=== PATIENT | female | born 1995 | race Caucasian/White ===

== ENCOUNTER → 2017-07-12 | Outpatient (CLI) | payer OTHER ==
--- NOTE | 2017-07-12 10:38 | XR ---
EXAMINATION TYPE: XR humerus LT DATE OF EXAM: 07/12/2017 CLINICAL HISTORY: Displaced control implant. TECHNIQUE: Two views of the left humerus are obtained. COMPARISON: None. FINDINGS: There is no acute fracture or dislocation seen in the left humerus. The left shoulder and elbow joints appear within normal limits. Overlying bra is partially imaged. There is linear 4.7 cm density corresponding to control implant in the soft tissue anterior radial aspect mid humeral level. IMPRESSION: As above.
== END | disposition home or self-care (01) ==
LOC: RADXRMAIN 09:25
PROVIDERS: ATTEND Midwife
DX: T85.628A Displacement of other specified internal prosthetic devices, implants and grafts, initial encounter (principal)

== ENCOUNTER 2018-06-15 04:13 | Emergency (ER) | payer BC ==
[2018-06-15] MEDS ORDERED: SODIUM CHLORIDE 0.9% 500 ML 500 ML IV STA (04:23)
--- NOTE | 2018-06-15 04:25 | ED ---
Abdominal Pain HPI - General Chief Complaint: Abdominal Pain Stated Complaint: ABD PAIN Time Seen by Provider: 06/15/18 04:21 Source: patient Mode of arrival: ambulatory Limitations: no limitations - History of Present Illness Initial Comments: Nano is a pleasant 22-year-old 1011 female who presents to the emergency department today for evaluation of nausea, vomiting and abdominal discomfort. Patient reports that she had a positive test in March however she subsequently developed vaginal bleeding she had evaluation by OB and was noted to have a miscarriage with Creason her hormone level from 15,003. Patient reports that she remains sexually active throughout the month of April she never had a menstrual cycle in April and in May has had 2 positive tests. Patient reports that for the past 5 days she has been very nauseated, had multiple episodes of nonbloody nonbilious emesis and loss of appetite. She reports that she's had intermittent pain in the left lower quadrant not associated with bowel movements or urination. Pain has been intermittent and without exacerbating or relieving factors. Patient reports that this morning she continued to feel nauseated and very unwell she is concerned she was becoming dehydrated so she decided come to the ER for evaluation. - Related Data Previous Rx's Medication Instructions Recorded Ondansetron [Zofran ODT] 4 mg PO Q8HR #12 tab 06/15/18 Allergies Allergy/AdvReac Type Severity Reaction Status Date / Time No Known Allergies Allergy Verified 06/15/18 07:03 Review of Systems ROS Statement: Those systems with pertinent positive or pertinent negative responses have been documented in the HPI. ROS Other: All systems not noted in ROS Statement are negative. Past Medical History Past Medical History: No Reported History Additional Past Medical History / Comment(s): migraines History of Any Multi-Drug Resistant Organisms: None Reported Past Surgical History: No Surgical Hx Reported Past Psychological History: ADD/ADHD, Bipolar, Depression Smoking Status: Former smoker Past Alcohol Use History: None Reported Past Drug Use History: None Reported General Exam - General Exam Comments Initial Comments: Physical Exam GENERAL: Dehydrated appearance In no acute distress HENT: Normocephalic, Atraumatic. EYES: PERRL, EOMI PULMONARY: Unlabored respirations CARDIOVASCULAR: There is a regular rate and rhythm without any murmurs gallops or rubs. ABDOMEN: Soft and nontender with normal bowel sounds. Mild tenderness to deep palpation in the suprapubic and left lower quadrant SKIN: Skin is clear with no lesions or rashes and otherwise unremarkable. : Deferred NEUROLOGIC: Patient is alert and oriented x3. Moving all extremities spontaneously MUSCULOSKELETAL: Normal extremities with adequate strength and full range of motion. No lower extremity swelling or edema. No calf tenderness. PSYCHIATRIC: Normal psychiatric evaluation. Limitations: no limitations Limitations: no limitations Course Vital Signs 06/15/18 06/15/18 06/15/18 04:15 05:20 07:05 Temperature 98.0 F Pulse Rate 71 58 L 60 Respiratory 18 16 16 Rate Blood Pressure 124/77 121/84 122/85 O2 Sat by Pulse 100 99 100 Oximetry Medical Decision Making - Medical Decision Making The patient was seen and evaluated, history is obtained from the patient Patient is a pleasant 22-year-old female with 2 positive tests at home with persistent nausea, vomiting concern for dehydration and intermittent left lower quadrant abdominal pain Patient was seen and evaluated patient does appear to be dehydrated labs and imaging were ordered including hCG Bedside ultrasound reveals no free fluid in the abdomen, no free fluid in Morison's pouch or in the pelvis Bedside ultrasound of the uterus reveals a viable intrauterine with a heart rate in the >160s There are no obvious abnormalities of the bilateral ovaries on transabdominal bedside ultrasound however this is a suboptimal view is suboptimal machine Considering the patient is hemodynamically stable, confirmed intrauterine with no free fluid in the abdomen I do feel she is stable to wait 90 minutes for ultrasound at 7 AM Discussed with the patient that Zofran is category C with some concern that there may be increased risk of cardiovascular disease and or cleft palate. Patient is agreeable to taking a single dose that she does have persistent nausea. Additional IV fluids and D5 were ordered for fluid rehydration and treatment of starvation ketosis Labs no significant abnormalities BHCG >100,000 Transvaginal US reveals viable intrauterine at 8w1d Patient was updated Patient care was discussed with Dr. Brown - is SUNNY with zofran PRN for nausea , patient to follow up in office as scheduled on Monday06/19/18 All questions pertaining to care answered, return parameters discussed, patient discharged home in stable condition - Lab Data Result diagrams: 06/15/18 04:27 06/15/18 04:27 Lab Results 06/15/18 06/15/18 06/15/18 Range/Units 04:27 04:27 05:16 WBC 7.0 (3.8-10.6) k/uL RBC 4.11 (3.80-5.40) m/uL Hgb 12.8 (11.4-16.0) gm/dL Hct 38.8 (34.0-46.0) % MCV 94.5 (80.0-100.0) fL MCH 31.2 (25.0-35.0) pg MCHC 33.1 (31.0-37.0) g/dL RDW 13.0 (11.5-15.5) % Plt Count 261 (150-450) k/uL Neutrophils % 57 % Lymphocytes % 30 % Monocytes % 7 % Eosinophils % 3 % Basophils % 0 % Neutrophils # 4.0 (1.3-7.7) k/uL Lymphocytes # 2.1 (1.0-4.8) k/uL Monocytes # 0.5 (0-1.0) k/uL Eosinophils # 0.2 (0-0.7) k/uL Basophils # 0.0 (0-0.2) k/uL Sodium 138 (137-145) mmol/L Potassium 3.9 (3.5-5.1) mmol/L Chloride 104 (98-107) mmol/L Carbon Dioxide 23 (22-30) mmol/L Anion Gap 11 mmol/L BUN 5 L (7-17) mg/dL Creatinine 0.49 L (0.52-1.04) mg/dL Est GFR (CKD-EPI)AfAm >90 (>60 ml/min/1.73 sqM) Est GFR (CKD-EPI)NonAf >90 (>60 ml/min/1.73 sqM) Glucose 96 (74-99) mg/dL Calcium 9.6 (8.4-10.2) mg/dL Total Bilirubin 0.5 (0.2-1.3) mg/dL AST 17 (14-36) U/L ALT 28 (9-52) U/L Alkaline Phosphatase 47 (38-126) U/L Total Protein 7.3 (6.3-8.2) g/dL Albumin 4.2 (3.5-5.0) g/dL Lipase 85 (23-300) U/L HCG, Quant 056048.0 mIU/mL Urine Color Yellow Urine Appearance Cloudy H (Clear) Urine pH 8.0 (5.0-8.0) Ur Specific [place] 1.013 (1.001-1.035) Urine Protein Trace H (Negative) Urine Glucose (UA) Negative (Negative) Urine Ketones 1+ H (Negative) Urine Blood Negative (Negative) Urine Nitrite Negative (Negative) Urine Bilirubin Negative (Negative) Urine Urobilinogen <2.0 (<2.0) mg/dL Ur Leukocyte Esterase Small H (Negative) Urine WBC 3 (0-5) /hpf Ur Squamous Epith Cells 35 H (0-4) /hpf Amorphous Sediment Occasional H (None) /hpf Urine Mucus Few H (None) /hpf Disposition Clinical Impression: Nausea and vomiting during Disposition: HOME SELF-CARE Condition: Stable Prescriptions: Ondansetron [Zofran ODT] 4 mg PO Q8HR #12 tab Is patient prescribed a controlled substance at d/c from ED?: No Referrals: Shannon Andrade MD [Primary Care Provider] - 1-2 days Tracey Ness MD [STAFF PHYSICIAN] - 1-2 days
[2018-06-15 04:44] LABS: Basophils % (A) 0 %; Eosinophils # (A) 0.2 k/uL (0-0.7); Eosinophils % (A) 3 %; HCT 38.8 % (34.0-46.0); HGB 12.8 gm/dL (11.4-16.0); Lymphocytes # (A) 2.1 k/uL (1.0-4.8); Lymphocytes % (A) 30 %; MCH 31.2 pg (25.0-35.0); MCHC 33.1 g/dL (31.0-37.0); MCV 94.5 fL (80.0-100.0); Mean Platelet Volume 6.2; Monocytes # (A) 0.5 k/uL (0-1.0); Monocytes % (A) 7 %; Neutrophils % (A) 57 %; Platelet Count 261 k/uL (150-450); RBC 4.11 m/uL (3.80-5.40)
[2018-06-15 05:09] LABS: ALT 28 U/L (9-52); AST 17 U/L (14-36); Albumin 4.2 g/dL (3.5-5.0); Alkaline Phosphatase 47 U/L (38-126); Anion Gap 11 mmol/L; Blood Urea Nitrogen 5 mg/dL (7-17); Calcium 9.6 mg/dL (8.4-10.2); Carbon Dioxide 23 mmol/L (22-30); Chloride 104 mmol/L (98-107); Glucose 96 mg/dL (74-99); Lipase 85 U/L (23-300); Potassium 3.9 mmol/L (3.5-5.1); Sodium 138 mmol/L (137-145); Total Bilirubin 0.5 mg/dL (0.2-1.3); Total Protein 7.3 g/dL (6.3-8.2)
[2018-06-15] MEDS ORDERED: ONDANSETRON 4 MG/2 ML VIAL IVP STA (05:10)
[2018-06-15] MEDS ORDERED: SODIUM CHLORIDE 0.9% 1,000 ML IV ONE (05:10)
[2018-06-15] MEDS ORDERED: DEXTROSE 5%-0.9% NACL 1,000 ML IV SCH (05:30)
[2018-06-15 06:11] LABS: Amorphous Sediment,Urine Occasional /hpf; Appearance,Urine Cloudy (Clear); Bilirubin,Urine Negative (Negative); Blood,Urine Negative (Negative); Color,Urine Yellow; Glucose,Urine (UA) Negative (Negative); Ketones,Urine 1+ (Negative); Leukocyte Esterase,Urine Small (Negative); Mucus,Urine Few /hpf; Nitrite,Urine Negative (Negative); Protein,Urine Trace (Negative); Specific Gravity,Urine 1.013 (1.001-1.035); Squamous Epithelial Cell,Urine 35 /hpf (0-4); Urobilinogen,Urine <2.0 mg/dL (<2.0)
--- NOTE | 2018-06-15 07:53 | US ---
EXAMINATION TYPE: Transabdominal DATE OF EXAM: 08/22/17 COMPARISON: NONE CLINICAL HISTORY: LLQ abd pain. Pt states LLQ pain, unsure of dates EXAM PERFORMED: Transabdominal (TA) EXAM MEASUREMENTS: GESTATIONAL AGE / DATING Physician Established: Not yet established Dates by LMP: Unknown, pt states having miscarriage in March and has not had a period since Dates by First Scan: No prior Dates by Current Scan for: (8 weeks/1 days) EDC: 01/24/2019 MATERNAL ANATOMY Uterus: 13.7 x 4.1 x 8.1 cm Right Ovary: 3.2 x 2.6 x 2.0 cm Left Ovary: 4.1 x 3.1 x 2.5 cm Post CDS / Adnexa: wnl Presence of free fluid: No Presence of corpus luteal cyst: Left Ovary= 2.0 x 1.8 x 2.0 cm Presence of subchorionic bleed: Lower uterine segment= 1.5 x 0.7 x 2.6 cm GESTATION / SURVEY CRL: 1.6 cm (8 weeks/1 days) MSD: wnl Yolk Sac (normal less than 6mm): 4mm Heart Rate: 170 bpm Rhythm: Normal IUP: Viable IUP Single, viable IUP/ Sub-chorionic bleed USMAN, otherwise no other abnormality visualized at this time Urinary bladder is sonolucent. Posterior wall is normal. IMPRESSION: 1. Single intrauterine gestation estimated 8 weeks 1 days gestation based on crown-rump length. Cardi ac activity measures 170 bpm. 2. Subchorionic hemorrhage
[2018-06-15 08:39] VITALS: BP 126/54; PULSE 66; RESP 18; TEMP 97.9
== END 2018-06-15 08:40 | disposition home or self-care (01) ==
LOC: EC 04:13
DX: O21.9 Vomiting of pregnancy, unspecified (principal); O99.89 Other specified diseases and conditions complicating pregnancy, childbirth and the puerperium; R10.32 Left lower quadrant pain; O9A.211 Injury, poisoning and certain other consequences of external causes complicating pregnancy, first trimester; T73.0XXA Starvation, initial encounter; Z87.891 Personal history of nicotine dependence; Z3A.08 8 weeks gestation of pregnancy
CPT/HCPCS: 36415; 80053; 83690; 85025; 81001; 84702; 76801; 99284; 96374; 96361 ×3; J2405

== ENCOUNTER 2018-07-18 05:43 | Emergency (ER) | payer BC ==
[2018-07-18 05:56] VITALS: RESP 16
[2018-07-18] MEDS ORDERED: SODIUM CHLORIDE 0.9% 2,000 ML IV STA (06:04)
[2018-07-18] MEDS ORDERED: ONDANSETRON 4 MG/2 ML VIAL IVP STA (06:04)
--- NOTE | 2018-07-18 06:05 | ED ---
General Adult HPI - General Chief complaint: Nausea/Vomiting/Diarrhea Stated complaint: Nausea, vomiting, pgt Time Seen by Provider: 07/18/18 06:04 Source: patient, EMS Mode of arrival: ambulatory Limitations: no limitations - History of Present Illness Initial comments: This is a female currently 12 weeks gestation who presents to the emergency department today for evaluation of nausea and vomiting. Patient reports she's had nausea vomiting throughout this first trimester but it's been bad for the past week. She reports she hasn't been able to tolerate any by mouth intake for 3 days. She states that yesterday she saw her primary care physician who advised her to the ER for IV fluid rehydration however she didn't at that time instead she went home, she reports she woke this morning is feeling very lightheaded and dehydrated which prompted her come to the ER for further evaluation. - Related Data Home Medications Medication Instructions Recorded Confirmed [id number]-[id number]-[id number] Acid 1 cap PO HS 07/18/18 07/18/18 [-U Capsule (formulary)] Previous Rx's Medication Instructions Recorded Ondansetron [Zofran ODT] 4 mg PO Q8HR #12 tab 06/15/18 Allergies Allergy/AdvReac Type Severity Reaction Status Date / Time No Known Allergies Allergy Verified 07/18/18 07:20 Review of Systems ROS Statement: Those systems with pertinent positive or pertinent negative responses have been documented in the HPI. ROS Other: All systems not noted in ROS Statement are negative. Past Medical History Past Medical History: No Reported History Additional Past Medical History / Comment(s): migraines History of Any Multi-Drug Resistant Organisms: None Reported Past Surgical History: No Surgical Hx Reported Past Psychological History: ADD/ADHD, Bipolar, Depression Smoking Status: Former smoker Past Alcohol Use History: None Reported Past Drug Use History: None Reported General Exam - General Exam Comments Initial Comments: Physical Exam GENERAL: Patient is well-developed and well-nourished. Patient is nontoxic and well- hydrated and is in no distress. HENT: Normocephalic, Atraumatic. EYES: PERRL, EOMI PULMONARY: Unlabored respirations. No audible rales rhonchi or wheezing was noted. CARDIOVASCULAR: There is a regular rate and rhythm without any murmurs gallops or rubs. ABDOMEN: Soft and nontender with normal bowel sounds. Bedside ultrasound reveals an active fetus with a heart rate in the 150s SKIN: Skin is clear with no lesions or rashes and otherwise unremarkable. : Deferred NEUROLOGIC: Patient is alert and oriented x3. Moving all extremities spontaneously MUSCULOSKELETAL: Normal extremities with adequate strength and full range of motion. No lower extremity swelling or edema. No calf tenderness. PSYCHIATRIC: Normal psychiatric evaluation. Limitations: no limitations Limitations: no limitations Course Vital Signs 07/18/18 05:53 Temperature 98.2 F Pulse Rate 73 Respiratory 16 Rate Blood Pressure 113/75 O2 Sat by Pulse 100 Oximetry Medical Decision Making - Medical Decision Making Patient was seen and evaluated, patient is hemodynamically stable with no hypotension or tachycardia however she does have persistent nausea and decreased by mouth intake and will treat for dehydration Labs and imaging ordered IV normal saline and D5 were ordered for treatment of starvation ketosis Bedside ultrasound revealed an active fetus with a heart rate in the 150s Patient felt reassured by being able to visualize the fetus Patient was receiving IV fluids at the time of shift change. Patient care was signed out to oncoming physician - Lab Data Result diagrams: 07/18/18 06:08 07/18/18 06:08 Lab Results 07/18/18 07/18/18 07/18/18 Range/Units 06:08 06:08 08:05 WBC 6.0 (3.8-10.6) k/uL RBC 4.13 (3.80-5.40) m/uL Hgb 12.9 (11.4-16.0) gm/dL Hct 39.0 (34.0-46.0) % MCV 94.6 (80.0-100.0) fL MCH 31.3 (25.0-35.0) pg MCHC 33.1 (31.0-37.0) g/dL RDW 12.6 (11.5-15.5) % Plt Count 217 (150-450) k/uL Neutrophils % 82 % Lymphocytes % 11 % Monocytes % 5 % Eosinophils % 1 % Basophils % 0 % Neutrophils # 4.9 (1.3-7.7) k/uL Lymphocytes # 0.7 L (1.0-4.8) k/uL Monocytes # 0.3 (0-1.0) k/uL Eosinophils # 0.1 (0-0.7) k/uL Basophils # 0.0 (0-0.2) k/uL Sodium 139 (137-145) mmol/L Potassium 4.0 (3.5-5.1) mmol/L Chloride 107 (98-107) mmol/L Carbon Dioxide 22 (22-30) mmol/L Anion Gap 10 mmol/L BUN 5 L (7-17) mg/dL Creatinine 0.46 L (0.52-1.04) mg/dL Est GFR (CKD-EPI)AfAm >90 (>60 ml/min/1.73 sqM) Est GFR (CKD-EPI)NonAf >90 (>60 ml/min/1.73 sqM) Glucose 91 (74-99) mg/dL Calcium 9.2 (8.4-10.2) mg/dL Total Bilirubin 0.8 (0.2-1.3) mg/dL AST 14 (14-36) U/L ALT 30 (9-52) U/L Alkaline Phosphatase 40 (38-126) U/L Total Protein 7.0 (6.3-8.2) g/dL Albumin 4.0 (3.5-5.0) g/dL Urine Color Yellow Urine Appearance Cloudy H (Clear) Urine pH 8.5 H (5.0-8.0) Ur Specific [place] 1.015 (1.001-1.035) Urine Protein Trace H (Negative) Urine Glucose (UA) Negative (Negative) Urine Ketones 2+ H (Negative) Urine Blood Negative (Negative) Urine Nitrite Negative (Negative) Urine Bilirubin Negative (Negative) Urine Urobilinogen 2.0 (<2.0) mg/dL Ur Leukocyte Esterase Trace H (Negative) Urine WBC <1 (0-5) /hpf Ur Squamous Epith Cells 9 H (0-4) /hpf Amorphous Sediment Moderate H (None) /hpf Urine Mucus Occasional H (None) /hpf Urine HCG, Qual (Not Detectd) 07/18/18 Range/Units 08:05 WBC (3.8-10.6) k/uL RBC (3.80-5.40) m/uL Hgb (11.4-16.0) gm/dL Hct (34.0-46.0) % MCV (80.0-100.0) fL MCH (25.0-35.0) pg MCHC (31.0-37.0) g/dL RDW (11.5-15.5) % Plt Count (150-450) k/uL Neutrophils % % Lymphocytes % % Monocytes % % Eosinophils % % Basophils % % Neutrophils # (1.3-7.7) k/uL Lymphocytes # (1.0-4.8) k/uL Monocytes # (0-1.0) k/uL Eosinophils # (0-0.7) k/uL Basophils # (0-0.2) k/uL Sodium (137-145) mmol/L Potassium (3.5-5.1) mmol/L Chloride (98-107) mmol/L Carbon Dioxide (22-30) mmol/L Anion Gap mmol/L BUN (7-17) mg/dL Creatinine (0.52-1.04) mg/dL Est GFR (CKD-EPI)AfAm (>60 ml/min/1.73 sqM) Est GFR (CKD-EPI)NonAf (>60 ml/min/1.73 sqM) Glucose (74-99) mg/dL Calcium (8.4-10.2) mg/dL Total Bilirubin (0.2-1.3) mg/dL AST (14-36) U/L ALT (9-52) U/L Alkaline Phosphatase (38-126) U/L Total Protein (6.3-8.2) g/dL Albumin (3.5-5.0) g/dL Urine Color Urine Appearance (Clear) Urine pH (5.0-8.0) Ur Specific [place] (1.001-1.035) Urine Protein (Negative) Urine Glucose (UA) (Negative) Urine Ketones (Negative) Urine Blood (Negative) Urine Nitrite (Negative) Urine Bilirubin (Negative) Urine Urobilinogen (<2.0) mg/dL Ur Leukocyte Esterase (Negative) Urine WBC (0-5) /hpf Ur Squamous Epith Cells (0-4) /hpf Amorphous Sediment (None) /hpf Urine Mucus (None) /hpf Urine HCG, Qual Detected (Not Detectd) Disposition Clinical Impression: Dehydration Disposition: HOME SELF-CARE Condition: Stable Instructions (If sedation given, give patient instructions): Acute Nausea and Vomiting (ED) Is patient prescribed a controlled substance at d/c from ED?: No Referrals: Shannon Andrade MD [Primary Care Provider] - 1-2 days
[2018-07-18 06:30] LABS: Basophils % (A) 0 %; Eosinophils # (A) 0.1 k/uL (0-0.7); Eosinophils % (A) 1 %; HGB 12.9 gm/dL (11.4-16.0); Lymphocytes # (A) 0.7 k/uL (1.0-4.8); Lymphocytes % (A) 11 %; MCH 31.3 pg (25.0-35.0); MCHC 33.1 g/dL (31.0-37.0); MCV 94.6 fL (80.0-100.0); Mean Platelet Volume 6.5; Monocytes # (A) 0.3 k/uL (0-1.0); Monocytes % (A) 5 %; Neutrophils # (A) 4.9 k/uL (1.3-7.7); Neutrophils % (A) 82 %; Platelet Count 217 k/uL (150-450); RBC 4.13 m/uL (3.80-5.40); RDW 12.6 % (11.5-15.5)
[2018-07-18 06:40] LABS: ALT 30 U/L (9-52); AST 14 U/L (14-36); Alkaline Phosphatase 40 U/L (38-126); Anion Gap 10 mmol/L; Blood Urea Nitrogen 5 mg/dL (7-17); Calcium 9.2 mg/dL (8.4-10.2); Carbon Dioxide 22 mmol/L (22-30); Chloride 107 mmol/L (98-107); Glucose 91 mg/dL (74-99); Sodium 139 mmol/L (137-145); Total Bilirubin 0.8 mg/dL (0.2-1.3)
[2018-07-18] MEDS ORDERED: DEXTROSE 5%-0.9% NACL 1,000 ML IV SCH (07:00)
[2018-07-18 08:29] LABS: Amorphous Sediment,Urine Moderate /hpf; Appearance,Urine Cloudy (Clear); Bilirubin,Urine Negative (Negative); Blood,Urine Negative (Negative); Color,Urine Yellow; Glucose,Urine (UA) Negative (Negative); Ketones,Urine 2+ (Negative); Leukocyte Esterase,Urine Trace (Negative); Mucus,Urine Occasional /hpf; Nitrite,Urine Negative (Negative); PH, Urine 8.5 (5.0-8.0); Protein,Urine Trace (Negative); Specific Gravity,Urine 1.015 (1.001-1.035); Squamous Epithelial Cell,Urine 9 /hpf (0-4)
[2018-07-18 09:39] VITALS: BP 107/60; PULSE 78; TEMP 97.8
== END 2018-07-18 09:40 | disposition home or self-care (01) ==
LOC: EC 05:43
DX: O99.281 Endocrine, nutritional and metabolic diseases complicating pregnancy, first trimester (principal); E86.0 Dehydration; E88.89 Other specified metabolic disorders; O21.9 Vomiting of pregnancy, unspecified; Z3A.12 12 weeks gestation of pregnancy; Z87.891 Personal history of nicotine dependence
CPT/HCPCS: 36415; 80053; 85025; 81001; 81025; 99284; 96374; 96361 ×3; J2405

== ENCOUNTER 2018-09-28 19:04 | Emergency (ER) | payer BC ==
[2018-09-28 19:36] VITALS: TEMP 98.4
[2018-09-28] MEDS ORDERED: PYRIDOXINE 100 MG/ML 1 ML VIAL IVP STA (19:51)
[2018-09-28] MEDS ORDERED: diphenhydrAMINE 50 MG/ML 1 ML VIAL IVP STA (19:51)
[2018-09-28] MEDS ORDERED: SODIUM CHLORIDE 0.9% 2,000 ML IV STA (19:51)
[2018-09-28 20:28] VITALS: RESP 16
[2018-09-28 20:39] LABS: Basophils % (A) 0 %; Eosinophils # (A) 0.1 k/uL (0-0.7); Eosinophils % (A) 1 %; HCT 31.8 % (34.0-46.0); HGB 10.9 gm/dL (11.4-16.0); Lymphocytes # (A) 2.4 k/uL (1.0-4.8); Lymphocytes % (A) 27 %; MCH 32.2 pg (25.0-35.0); MCHC 34.3 g/dL (31.0-37.0); MCV 93.7 fL (80.0-100.0); Monocytes # (A) 0.5 k/uL (0-1.0); Monocytes % (A) 5 %; Neutrophils # (A) 5.7 k/uL (1.3-7.7); Neutrophils % (A) 64 %; Platelet Count 259 k/uL (150-450); RBC 3.39 m/uL (3.80-5.40); RDW 13.7 % (11.5-15.5); WBC 8.9 k/uL (3.8-10.6)
[2018-09-28 20:49] LABS: Appearance,Urine Cloudy (Clear); Bacteria,Urine Rare /hpf; Bilirubin,Urine Negative (Negative); Blood,Urine Negative (Negative); Budding Yeast,Urine Occasional /hpf; Color,Urine Yellow; Glucose,Urine (UA) Negative (Negative); Ketones,Urine 2+ (Negative); Leukocyte Esterase,Urine Small (Negative); Mucus,Urine Few /hpf; Nitrite,Urine Negative (Negative); Protein,Urine Trace (Negative); RBC,Urine 3 /hpf (0-5); Specific Gravity,Urine 1.016 (1.001-1.035); Squamous Epithelial Cell,Urine 16 /hpf (0-4); Urobilinogen,Urine <2.0 mg/dL (<2.0); WBC,Urine 7 /hpf (0-5)
[2018-09-28 20:52] LABS: ALT 26 U/L (9-52); AST 16 U/L (14-36); Albumin 3.4 g/dL (3.5-5.0); Alkaline Phosphatase 70 U/L (38-126); Amylase 40 U/L (30-110); Anion Gap 7 mmol/L; Blood Urea Nitrogen 2 mg/dL (7-17); Calcium 9.1 mg/dL (8.4-10.2); Carbon Dioxide 26 mmol/L (22-30); Chloride 105 mmol/L (98-107); Glucose 73 mg/dL (74-99); Lipase 35 U/L (23-300); Magnesium 1.7 mg/dL (1.6-2.3); Phosphorus 4.3 mg/dL (2.5-4.5); Potassium 3.2 mmol/L (3.5-5.1); Sodium 138 mmol/L (137-145); Total Bilirubin 0.4 mg/dL (0.2-1.3); Total Protein 6.2 g/dL (6.3-8.2)
--- NOTE | 2018-09-28 21:44 | ED ---
Nausea/Vomiting/Diarrhea HPI - General Chief complaint: Nausea/Vomiting/Diarrhea Stated complaint: vomiting/23 wks preg Time Seen by Provider: 09/28/18 19:50 Source: patient, RN notes reviewed, old records reviewed Mode of arrival: ambulatory Limitations: no limitations - History of Present Illness Initial comments: This is a 23-year-old female the ER for evaluation. Patient's positive or on 24 weeks. She does have history of positive IUP on ultrasound, patient is prolonged shows nausea vomiting this takes (home for OB. Patient recently on antibiotics for sinusitis. Otherwise denies any fevers complaints of abdominal pain or any other issues. No dysuria. No diarrhea. MD complaint: nausea, vomiting -: month(s) Description of Vomiting: food contents, watery Severity: mild Consistency: constant Improves with: none Worsens with: none Associated Symptoms: loss of appetite, nausea/vomiting - Related Data Home Medications Medication Instructions Recorded Confirmed Jhe-Jnfc-Sprmx Acid 1 cap PO HS 07/18/18 07/18/18 [-U Capsule (formulary)] Previous Rx's Medication Instructions Recorded Ondansetron [Zofran ODT] 4 mg PO Q8HR #12 tab 06/15/18 Allergies Allergy/AdvReac Type Severity Reaction Status Date / Time No Known Allergies Allergy Verified 07/18/18 07:20 Review of Systems ROS Statement: Those systems with pertinent positive or pertinent negative responses have been documented in the HPI. ROS Other: All systems not noted in ROS Statement are negative. Past Medical History Past Medical History: No Reported History Additional Past Medical History / Comment(s): migraines History of Any Multi-Drug Resistant Organisms: None Reported Past Surgical History: No Surgical Hx Reported Past Psychological History: ADD/ADHD, Bipolar, Depression Smoking Status: Former smoker Past Alcohol Use History: None Reported Past Drug Use History: None Reported General Exam Limitations: no limitations General appearance: alert, in no apparent distress Head exam: Present: atraumatic, normocephalic, normal inspection Eye exam: Present: normal appearance, PERRL, EOMI. Absent: scleral icterus, conjunctival injection, periorbital swelling ENT exam: Present: normal exam, mucous membranes moist Neck exam: Present: normal inspection. Absent: tenderness, meningismus, lymphadenopathy Respiratory exam: Present: normal lung sounds bilaterally. Absent: respiratory distress, wheezes, rales, rhonchi, stridor Cardiovascular Exam: Present: regular rate, normal rhythm, normal heart sounds. Absent: systolic murmur, diastolic murmur, rubs, gallop, clicks GI/Abdominal exam: Present: soft, normal bowel sounds. Absent: distended, tenderness, guarding, rebound, rigid Extremities exam: Present: normal inspection, full ROM, normal capillary refill. Absent: tenderness, pedal edema, joint swelling, calf tenderness Back exam: Present: normal inspection Neurological exam: Present: alert, oriented X3, CN II-XII intact Psychiatric exam: Present: normal affect, normal mood Skin exam: Present: warm, dry, intact, normal color. Absent: rash Course Vital Signs 09/28/18 09/28/18 19:31 20:27 Temperature 98.4 F Pulse Rate 85 63 Respiratory 18 16 Rate Blood Pressure 93/63 112/65 O2 Sat by Pulse 98 97 Oximetry - Reevaluation(s) Reevaluation #1: 09/28/18 21:58 Medical record reviewed Reevaluation #2: 09/28/18 21:58 Symptoms significantly improved Medical Decision Making - Medical Decision Making 43 female the ER with nausea vomiting . Urine will be cultured. Patient has no abdominal pain. No vaginal bleeding. No active nausea vomiting here in the ER, patient can be discharged - Lab Data Result diagrams: 09/28/18 20:20 09/28/18 20:20 Lab Results 09/28/18 09/28/18 09/28/18 Range/Units 20:20 20:20 20:20 WBC 8.9 (3.8-10.6) k/uL RBC 3.39 L (3.80-5.40) m/uL Hgb 10.9 L (11.4-16.0) gm/dL Hct 31.8 L (34.0-46.0) % MCV 93.7 (80.0-100.0) fL MCH 32.2 (25.0-35.0) pg MCHC 34.3 (31.0-37.0) g/dL RDW 13.7 (11.5-15.5) % Plt Count 259 (150-450) k/uL Neutrophils % 64 % Lymphocytes % 27 % Monocytes % 5 % Eosinophils % 1 % Basophils % 0 % Neutrophils # 5.7 (1.3-7.7) k/uL Lymphocytes # 2.4 (1.0-4.8) k/uL Monocytes # 0.5 (0-1.0) k/uL Eosinophils # 0.1 (0-0.7) k/uL Basophils # 0.0 (0-0.2) k/uL Sodium 138 (137-145) mmol/L Potassium 3.2 L (3.5-5.1) mmol/L Chloride 105 (98-107) mmol/L Carbon Dioxide 26 (22-30) mmol/L Anion Gap 7 mmol/L BUN 2 L (7-17) mg/dL Creatinine 0.36 L (0.52-1.04) mg/dL Est GFR (CKD-EPI)AfAm >90 (>60 ml/min/1.73 sqM) Est GFR (CKD-EPI)NonAf >90 (>60 ml/min/1.73 sqM) Glucose 73 L (74-99) mg/dL Plasma Lactic Acid [place] 0.7 (0.7-2.0) mmol/L Calcium 9.1 (8.4-10.2) mg/dL Phosphorus 4.3 (2.5-4.5) mg/dL Magnesium 1.7 (1.6-2.3) mg/dL Total Bilirubin 0.4 (0.2-1.3) mg/dL AST 16 (14-36) U/L ALT 26 (9-52) U/L Alkaline Phosphatase 70 (38-126) U/L Total Protein 6.2 L (6.3-8.2) g/dL Albumin 3.4 L (3.5-5.0) g/dL Amylase 40 (30-110) U/L Lipase 35 (23-300) U/L Urine Color Urine Appearance (Clear) Urine pH (5.0-8.0) Ur Specific [place] (1.001-1.035) Urine Protein (Negative) Urine Glucose (UA) (Negative) Urine Ketones (Negative) Urine Blood (Negative) Urine Nitrite (Negative) Urine Bilirubin (Negative) Urine Urobilinogen (<2.0) mg/dL Ur Leukocyte Esterase (Negative) Urine RBC (0-5) /hpf Urine WBC (0-5) /hpf Ur Squamous Epith Cells (0-4) /hpf Urine Bacteria (None) /hpf Urine Mucus (None) /hpf Urine Yeast (Budding) (None) /hpf 09/28/18 Range/Units 20:20 WBC (3.8-10.6) k/uL RBC (3.80-5.40) m/uL Hgb (11.4-16.0) gm/dL Hct (34.0-46.0) % MCV (80.0-100.0) fL MCH (25.0-35.0) pg MCHC (31.0-37.0) g/dL RDW (11.5-15.5) % Plt Count (150-450) k/uL Neutrophils % % Lymphocytes % % Monocytes % % Eosinophils % % Basophils % % Neutrophils # (1.3-7.7) k/uL Lymphocytes # (1.0-4.8) k/uL Monocytes # (0-1.0) k/uL Eosinophils # (0-0.7) k/uL Basophils # (0-0.2) k/uL Sodium (137-145) mmol/L Potassium (3.5-5.1) mmol/L Chloride (98-107) mmol/L Carbon Dioxide (22-30) mmol/L Anion Gap mmol/L BUN (7-17) mg/dL Creatinine (0.52-1.04) mg/dL Est GFR (CKD-EPI)AfAm (>60 ml/min/1.73 sqM) Est GFR (CKD-EPI)NonAf (>60 ml/min/1.73 sqM) Glucose (74-99) mg/dL Plasma Lactic Acid [place] (0.7-2.0) mmol/L Calcium (8.4-10.2) mg/dL Phosphorus (2.5-4.5) mg/dL Magnesium (1.6-2.3) mg/dL Total Bilirubin (0.2-1.3) mg/dL AST (14-36) U/L ALT (9-52) U/L Alkaline Phosphatase (38-126) U/L Total Protein (6.3-8.2) g/dL Albumin (3.5-5.0) g/dL Amylase (30-110) U/L Lipase (23-300) U/L Urine Color Yellow Urine Appearance Cloudy H (Clear) Urine pH 7.0 (5.0-8.0) Ur Specific [place] 1.016 (1.001-1.035) Urine Protein Trace H (Negative) Urine Glucose (UA) Negative (Negative) Urine Ketones 2+ H (Negative) Urine Blood Negative (Negative) Urine Nitrite Negative (Negative) Urine Bilirubin Negative (Negative) Urine Urobilinogen <2.0 (<2.0) mg/dL Ur Leukocyte Esterase Small H (Negative) Urine RBC 3 (0-5) /hpf Urine WBC 7 H (0-5) /hpf Ur Squamous Epith Cells 16 H (0-4) /hpf Urine Bacteria Rare H (None) /hpf Urine Mucus Few H (None) /hpf Urine Yeast (Budding) Occasional H (None) /hpf Disposition Clinical Impression: Dehydration, Nausea & vomiting, Nausea and vomiting during Disposition: HOME SELF-CARE Condition: Good Instructions (If sedation given, give patient instructions): Nausea and Vomiting in (ED) Is patient prescribed a controlled substance at d/c from ED?: No Referrals: Shannon Andrade MD [Primary Care Provider] - 1-2 days
[2018-09-28] MEDS ORDERED: METOCLOPRAMIDE 5 MG/ML 2 ML VIAL IVP STA (21:56)
[2018-09-28] MEDS ORDERED: ONDANSETRON 4 MG/2 ML VIAL IVP STA (21:56)
[2018-09-28] MEDS ORDERED: POTASSIUM BICARBONATE/CIT AC 20 MEQ TABLET.EFF PO ONE (21:56)
[2018-09-28 22:18] VITALS: BP 120/83; PULSE 94
== END 2018-09-28 22:22 | disposition home or self-care (01) ==
LOC: EC 19:04
DX: O99.282 Endocrine, nutritional and metabolic diseases complicating pregnancy, second trimester (principal); E86.0 Dehydration; O21.2 Late vomiting of pregnancy; Z3A.24 24 weeks gestation of pregnancy; Z87.891 Personal history of nicotine dependence
CPT/HCPCS: 36415; 80053; 82150; 83605; 83690; 83735; 84100; 85025; 81001; 87086; 99284; 96374; 96375 ×3; 96361 ×2; J1200; J3415; J2765; J2405

== ENCOUNTER 2019-01-03 17:57 | Outpatient (CLI) | payer BC ==
[2019-01-03 18:32] VITALS: BP 122/85; PULSE 86; TEMP 98.1
[2019-01-03 19:59] VITALS: RESP 18
--- NOTE | 2019-01-16 15:53 | P.MSEPDOC ---
Presenting Problems - Arrival Data Date of Arrival on Unit: 01/03/19 Time of Arrival on Unit: 18:30 Mode of Transport: Ambulatory - Complaint OB-Reason for Admission/Chief Complaint: Other Comment: abdominal pain Medical History - Information : 3 Para: 1 Term: 1 : 0 Abortions: Spontaneous or Elective: 1 Number of Living Children: 1 - Gestational Age Gestational Age by SARAH (wks/days): 37 Weeks and 0 Days - History Complications: Prior Review of Systems - Review of Systems Constitutional: No problems Breast: No problems ENT: No problems Cardiovascular: No problems Respiratory: No problems Gastrointestinal: No problems Genitourinary: No problems Musculoskeletal: No problems Neurological: No problems Skin: No problems Vital Signs - Temperature Temperature: 98.1 F Temperature Source: Temporal Artery Scan - Pulse Sitting Pulse Rate: 86 Pulse Assessment Method: Pulse Oximetry - Respirations Respiratory Rate: 18 Oxygen Delivery Method: Room Air O2 Sat by Pulse Oximetry: 98 - Blood Pressure Left Arm Blood Pressure: 122/85 Blood Pressure Mean: 97 Blood Pressure Source: Automatic Cuff Medical Screen Scoring (Pre) - Cervical Exam Dilation: 0 cm = 0 - Uterine Contractions Frequency: N/A - Maternal Vital Signs Maternal Temperature: N/A Maternal Blood Pressure: N/A Signs of Preeclampsia: N/A Maternal Respirations: N/A - Maternal Trauma Maternal Trauma: N/A - Assessment - Baby A Heart Rate - NICHD Category: Category I (Normal) = 0 - Total Score - Baby A Total Score - Baby A: 0 - Total Score - Baby B Total Score - Baby B: 0 - Total Score - Baby C Total Score - Baby C: 0 - Level of Risk - Baby A Level of Risk - Baby A: Low (0-5) - Level of Risk - Baby B Level of Risk - Baby B: Low (0-5) - Level of Risk - Baby C Level of Risk - Baby C: Low (0-5) Physician Notification (Pre) - Physician Notified Physician Notified Date: 01/03/19 Physician Notified Time: 18:32 Physician/Practitioner Notifed:: dr ness Medical Screen Scoring (Post) - Cervical Exam Dilation: 1-3 cm = 1 Membranes: Intact - Uterine Contractions Frequency: N/A Duration: N/A Intensity: N/A - Maternal Vital Signs Maternal Temperature: N/A Maternal Blood Pressure: N/A Signs of Preeclampsia: N/A Maternal Respirations: N/A - Pain Assessment Pain Location and Character: Upper, Abdomen Pain Scale Used: Numeric (1 - 10) Pain Intensity: 6 Pain Management Goal: 2 Pain Description: *Acute, Sharp Pain Radiation Location: none Pain Frequency: Intermittent Pain Duration: 1 Pain Duration Units: Days Pain Behavior: Vocalization Effects of Pain: none Pain Aggravating Factors: None Pharmacological Interventions: Discuss Pain Med Options Non-Pharmacological Interventions: Position/Reposition, Reduce Environmental Stimuli - Maternal Trauma Maternal Trauma: N/A - Assessment - Baby A Heart Rate: 145 Heart Rate - NICHD Category: Category I (Normal) = 0 NST: Reactive Position: N/A Station: N/A - Total Score Total Score - Baby A: 1 Total Score - Baby B: 1 Total Score - Baby C: 1 - Post Treatment Level of Risk Post Treatment Level of Risk - Baby A: Low (0-5) Post Treatment Level of Risk - Baby B: Low (0-5) Post Treatment Level of Risk - Baby C: Low (0-5) Physician Notification (Post) - Physician Notified Physician Notified Date: 01/03/19 Physician Notified Time: 19:21 Physician/Practitioner Notified:: Dr Ness Spoke With: via telephone by Quentin Bernardo New Order Received: Yes - Notification Comment Comment: pt here for sharp upper abdominal pain that comes and goes pt rates 6/10. pt appears comfortable in bed, pt given option to stay another hour for RN to recheck cervix or that she may be discharged, pt wishes to be discharged at this time. Disposition - Disposition OB Disposition: Physician follow up in office, Discharge to home Discharge Date: 01/03/19 Discharge Time: 19:37 I agree with the RN Medical Screening Exam: Yes Risk & Benefit of care provided described in d/c instruction: Yes Diagnosis: UNSPECIFIED ABDOMINAL PAIN
== END 2019-01-03 19:37 | disposition home or self-care (01) ==
LOC: FBPOP 17:57
PROVIDERS: ATTEND Obstetrics & Gynecology
DX: O26.93 Pregnancy related conditions, unspecified, third trimester (principal); R10.9 Unspecified abdominal pain; Z3A.37 37 weeks gestation of pregnancy
CPT/HCPCS: 59025; 99213

== ENCOUNTER 2019-01-11 04:29 | Inpatient (IN) | payer BC, OTHER ==
[2019-01-11 05:36] LABS: Basophils % (A) 0 %; Eosinophils # (A) 0.1 k/uL (0-0.7); Eosinophils % (A) 1 %; HCT 33.9 % (34.0-46.0); HGB 11.6 gm/dL (11.4-16.0); Lymphocytes # (A) 1.8 k/uL (1.0-4.8); Lymphocytes % (A) 19 %; MCH 32.5 pg (25.0-35.0); MCHC 34.3 g/dL (31.0-37.0); MCV 94.8 fL (80.0-100.0); Mean Platelet Volume 8.1; Monocytes # (A) 0.6 k/uL (0-1.0); Monocytes % (A) 7 %; Neutrophils # (A) 6.4 k/uL (1.3-7.7); Neutrophils % (A) 70 %; Platelet Count 141 k/uL (150-450); RBC 3.58 m/uL (3.80-5.40); RDW 13.9 % (11.5-15.5); WBC 9.2 k/uL (3.8-10.6)
[2019-01-11 05:46] LABS: ALT 76 U/L (9-52); AST 80 U/L (14-36); African American GFR (CKD) >90 (>60 ml/min/1.73 sqM); Blood Urea Nitrogen 12 mg/dL (7-17); LDH 716 U/L (313-618)
[2019-01-11 05:50] LABS: Amorphous Sediment,Urine Few /hpf; Appearance,Urine Turbid (Clear); Bilirubin,Urine Negative (Negative); Blood,Urine Negative (Negative); Color,Urine Yellow; Glucose,Urine (UA) Negative (Negative); Ketones,Urine Negative (Negative); Leukocyte Esterase,Urine Trace (Negative); Mucus,Urine Rare /hpf; Nitrite,Urine Negative (Negative); Protein,Urine 1+ (Negative); Specific Gravity,Urine 1.017 (1.001-1.035); Squamous Epithelial Cell,Urine 8 /hpf (0-4); Urobilinogen,Urine <2.0 mg/dL (<2.0); WBC,Urine 4 /hpf (0-5)
[2019-01-11] MEDS ORDERED: CITRIC ACID-SODIUM CITRATE 15 ML CUP PO ONE (07:15)
[2019-01-11] MEDS ORDERED: LACTATED RINGERS 1,000 ML IV ONE (07:15)
--- NOTE | 2019-01-11 07:29 | P.HPOB ---
History of Present Illness H&P Date: 01/11/19 Chief Complaint: Upper abdominal pain This is a 23-year-old 3 para 1011 woman with an estimated due date of 01/24/2019 based on first trimester ultrasound. She presents at 38 and one sevenths weeks gestation complaining of several hours of severe right upper quadrant pain, heartburn and nausea. She also complains of low uterine cramping. She denies vaginal bleeding or leakage of fluids. She complains of decreased movement over the last several hours as well. Upon presentation to labor and delivery triage she had a series of elevated blood pressures mainly in the 140s to 150s over 90s. High of 160/106. Laboratory data shows mildly elevated AST 80 and ALT 76, LDH 716, platelets 141,000, 1+ urine protein. She has no prior history of hypertension in this . She denies headaches, visual changes, vaginal bleeding, leakage of fluids, regul ar contractions, increase in swelling. She complains of heartburn, right upper quadrant and upper abdominal pain, low uterine cramping. She is feeling good movement at this time. Obstetrical history is significant for primary low transverse section in 2013 for failure to progress. She had a missed AB in the first trimester in 2018. She is declining a trial of labor after and had a repeat C- section with tubal ligation scheduled for 39 weeks. labs: Blood type A+, antibody screen negative, rubella nonimmune, VDRL nonreactive, hepatitis B surface antigen negative, HIV negative, diabetes screening within normal limits, group B strep negative Review of Systems All systems: negative Past Medical History Past Medical History: No Reported History Additional Past Medical History / Comment(s): migraines History of Any Multi-Drug Resistant Organisms: None Reported Past Surgical History: Section (2012) Smoking Status: Never smoker Medications and Allergies Home Medications Medication Instructions Recorded Confirmed Type Kjl-Cgij-Ftmcm Acid 1 cap PO HS 07/18/18 01/11/19 History [-U Capsule (formulary)] Allergies Allergy/AdvReac Type Severity Reaction Status Date / Time No Known Allergies Allergy Verified 01/11/19 04:37 Exam Vital Signs Temp Pulse Resp BP Pulse Ox 01/11/19 05:10 97.2 F L 54 L 20 154/106 99 01/11/19 04:30 97.6 F 70 20 154/106 99 Intake and Output 01/10/19 01/11/19 01/11/19 22:59 06:59 14:59 Other: Weight 101.605 kg This is a visibly gravid, obviously uncomfortable female. HEENT exam is unremarkable. Her breathing is unlabored and her heart is a regular rate and rhythm. On abdominal examination the uterus is gravid with size appropriate to dates. She has generalized tenderness in the entire upper abdominal area with no rebound or guarding. The uterus is soft and nontender. She has no CVA tenderness. The lower extremities have 1+ bilateral edema and 1+ bilateral deep tendon reflexes with no clonus. heart rate tracing is category 1 with irregular contraction pattern. Per the RN exam her cervix is fingertip dilated and thick. Results Result Diagrams: 01/11/19 05:15 01/11/19 05:15 Abnormal Lab Results - Last 24 Hours (Table) 01/11/19 01/11/19 01/11/19 Range/Units 05:15 05:15 05:32 RBC 3.58 L (3.80-5.40) m/uL Hct 33.9 L (34.0-46.0) % Plt Count 141 L (150-450) k/uL AST 80 H (14-36) U/L ALT 76 H (9-52) U/L Lactate Dehydrogenase 716 H (313-618) U/L Urine Appearance Turbid H (Clear) Urine Protein 1+ H (Negative) Ur Leukocyte Esterase Trace H (Negative) Ur Squamous Epith Cells 8 H (0-4) /hpf Amorphous Sediment Few H (None) /hpf Urine Mucus Rare H (None) /hpf Assessment and Plan (1) 38 weeks gestation of Current Visit: Yes Status: Acute Code(s): Z3A.38 - 38 WEEKS GESTATION OF SNOMED Code(s): 23374852 (2) Right upper quadrant abdominal pain Current Visit: Yes Status: Acute Code(s): R10.11 - RIGHT UPPER QUADRANT PAIN SNOMED Code(s): 619061684 (3) Preeclampsia Current Visit: Yes Status: Acute Code(s): O14.90 - UNSPECIFIED PRE- ECLAMPSIA, UNSPECIFIED TRIMESTER SNOMED Code(s): 203315496 (4) History of Current Visit: Yes Status: Acute Code(s): Z98.891 - HISTORY OF UTERINE SCAR FROM PREVIOUS SURGERY SNOMED Code(s): 794305389 (5) Family planning Current Visit: Yes Status: Acute Code(s): Z30.09 - ENCOUNTER FOR OTH GENERAL CNSL AND ADVICE ON CONTRACEPTION SNOMED Code(s): 904012289 (6) Rubella non-immune status, antepartum Current Visit: Yes Status: Acute Code(s): O99.89 - OTH DISEASES AND CONDITIONS COMPL PREG/CHLDBRTH; Z28.3 - UNDERIMMUNIZATION STATUS SNOMED Code(s): 847496667 Plan: This is a 23-year-old 3 para 1011 woman admitted at 38 and one sevenths weeks gestation with probable preeclampsia based on elevated blood pressures, elevated LFTs, 1+ urine protein. She is a planned repeat low transverse section with bilateral tubal ligation. I have recommended proceeding with delivery at this time and close laboratory and blood pressure monitoring. status is currently reassuring by external monitoring. Magnesium sulfate to be administered at the discretion of the attending physician, Dr. Ness. Patient has been counseled and consent obtained for repeat with bilateral tubal ligation. Time with Patient: Greater than 30
[2019-01-11] MEDS ORDERED: MORPHINE SULFATE (PF) 0.3 MG/0.3 ML SYR ONE (07:45)
[2019-01-11] MEDS ORDERED: DEXAMETHASONE SOD PHOS (MDV) 100 MG/10 ML VIAL ONE (07:45)
[2019-01-11] MEDS ORDERED: fentaNYL (PF) 50 MCG/ML 2 ML AMP ONE (07:45)
[2019-01-11] MEDS ORDERED: KETOROLAC 30 MG/ML 1 ML VIAL ONE (07:45)
[2019-01-11] MEDS ORDERED: OXYTOCIN 10 UNIT/ML 1 ML VIAL ONE (07:45)
[2019-01-11] MEDS ORDERED: ONDANSETRON 4 MG/2 ML VIAL ONE (07:45)
[2019-01-11] MEDS ORDERED: ePHEDrine 50 MG/ML 1 ML AMP ONE (07:45)
[2019-01-11] MEDS ORDERED: diphenhydrAMINE 50 MG CAP PO PRN (08:55)
[2019-01-11] MEDS ORDERED: METOCLOPRAMIDE 5 MG/ML 2 ML VIAL IVP PRN (08:55)
[2019-01-11] MEDS ORDERED: ONDANSETRON 4 MG/2 ML VIAL IVP PRN (08:55)
[2019-01-11] MEDS ORDERED: KETOROLAC 30 MG/ML 1 ML VIAL IVP PRN ×2 (08:55→10:31)
[2019-01-11] MEDS ORDERED: NALOXONE 0.4 MG/ML 1 ML VIAL IV PRN (08:55)
[2019-01-11] MEDS ORDERED: diphenhydrAMINE 50 MG/ML 1 ML VIAL IVP PRN ×3 (08:55→10:31)
[2019-01-11] MEDS ORDERED: diphenhydrAMINE 25 MG CAP PO PRN (08:55)
[2019-01-11] MEDS ORDERED: ACETAMINOPHEN TAB 325 MG TAB PO PRN (08:55)
[2019-01-11] MEDS ORDERED: MEASLES-MUMPS-RUBELLA VACC/PF 12,500 UNIT/0.5 ML VIAL SQ ONE (08:55)
[2019-01-11] MEDS ORDERED: ZOLPIDEM 5 MG TAB PO PRN (08:55)
[2019-01-11] MEDS ORDERED: SIMETHICONE 80 MG CHEWABLE PO PRN (08:55)
--- NOTE | 2019-01-11 08:55 | P.OP ---
Date of Procedure: 01/11/19 Preoperative Diagnosis: 38 and one sevenths weeks intrauterine , previous declining , undesired fertility, preeclampsia Postoperative Diagnosis: Same, liveborn male . Normal-appearing tubes and ovaries bilaterally. Nuchal cord 2. Procedure(s) Performed: Repeat low transverse section with tubal ligation. Anesthesia: spinal Surgeon: Tracey Ness Dental Nurse #1: Ken Terry Estimated Blood Loss (ml): 600 IV fluids (ml): 800 Urine output (ml): 200 Pathology: other (Placenta) Condition: stable Disposition: PACU Operative Findings: Liveborn male infant, nuchal cord 2, 3030 g weight, 6 lbs. 11 oz. Normal-appearing tubes and ovaries. Light meconium-stained fluid. Description of Procedure: Patient presented to labor and delivery with a complaint of right upper quadrant pain and decreased movement. Blood pressure on admission 154/106, elevated liver enzymes. Diagnosis of preeclampsia was made. Patient is scheduled for section next week with tubal ligation, decision was made to proceed with the this morning. All risks and benefits discussed with the patient. Group B strep cultures negative. Patient is brought to the operating suite where a spinal analgesia with Duramorph is placed. She's put in the dorsal supine position with left lateral uterine displacement. The abdomen is prepped and draped in usual sterile fashion. Antibiotics are given. The appropriate timeout is performed to assure proper patient and procedural identification. The analgesia is checked and noted to be adequate. Palomo catheter placed to direct drainage. A low transverse skin incision is made over the previous scar. This is taken down through the subcutaneous tissue of approximate 6 cm depth. The fascia is isolated, scored, and extended bilaterally with curved Schultz scissors. Peritoneum is next identified and incised, there is no bowel or bladder involvement. Bladder blade is placed over the bladder, bladder flap is created and swept well from the lower uterine segment. The bladder blade is replaced. A low transverse uterine incision is made in this is carried down through the myometrium. The incision is extended bluntly. 's head is delivered in the occiput anterior position. There is meconium- stained fluid noted. There was a nuchal cord times to this reduced. Patient is officially delivered of a liveborn male at 0820 hours. Umbilical cord is doubly clamped and ligated, he is handed to waiting nurses for evaluation where scores of 9 and 9 at one and 5 minutes respectively are given. weighs 6 lbs. 11 oz. or 3030 g. The placenta is delivered manually, it is inspected and noted to be intact with trivascular cord at 0821 hours. It is meconium-stained and sent to pathology for further evaluation. The uterus is then externalized and massaged. It is swept clean with a sterile sponge to avoid any retained products of conception. The uterine incision is grasped with Arechiga clamps and the uterus is closed in a single full-thickness closure with running stitch of 0 Vicryl. Excellent reapproximation and hemostasis is noted. Patient's decision to proceed with tubal ligation is once again affirmed. Filshie clips are used in the isthmic portion of both tubes, with care to traverse the entire diameter of the tubes into the mesal salpinx bilaterally. Fimbriated ends are identified for proper placement. Bilateral ovaries appear normal. The abdomen is now suctioned with suction on guard and the uterus is gently placed back into the abdominal cavity. Bilateral gutters are inspected and cleaned. Uterine incision is once again inspected and noted to be dry. Peritoneum is allowed to close by secondary intention. Fascia is closed in a running stitch of 0 Vicryl with over ligation in the midline. Subcutaneous tissue is irrigated, clean and dry. It is reapproximated with 3-0 Vicryl in a running stitch. 4-0 undyed Vicryl is used for final subcuticular closure. The incision is dressed with Steri-Strips and Mastisol along with a dressing. Palomo is noted to be draining clear urine. Cervix is dilated manually and a small amount of blood is noted upon massaging the uterus. All sponge needle and enhancement counts are correct at the end of the procedure. Patient is requesting circumcision for her son. Blood pressure upon leaving the operating room 158/84, pulse 91. Patient asymptomatic. Blood pressures will be monitored over the next 2-3 hours and decision for magnesium sulfate will be made at that time.
[2019-01-11] MEDS ORDERED: NALBUPHINE 10 MG/ML (1 ML AMP) IV PRN (10:31)
[2019-01-11] MEDS ORDERED: HYDROmorphone 0.5 MG/0.5 ML SYRINGE IVP PRN (10:31)
[2019-01-11] MEDS ORDERED: HYDROmorphone 1 MG/ML 1 ML SYRINGE IVP PRN (10:35)
[2019-01-11 11:04] VITALS: BMI 38.4
[2019-01-11] MEDS: HYDROcodone/APAP 5-325MG 1 EACH TAB PO PRN (13:16)
[2019-01-11] MEDS: LACTATED RINGERS 1,000 ML IV SCH ×4 (16:49→17:23)
[2019-01-11] MEDS: IBUPROFEN 600 MG TAB PO PRN (20:20)
[2019-01-11] MEDS: SENNOSIDES-DOCUSATE SODIUM 1 EACH TAB PO SCH (20:26)
[2019-01-12] MEDS: HYDROcodone/APAP 5-325MG 1 EACH TAB PO PRN ×3 (02:09→17:32)
[2019-01-12 07:27] LABS: Basophils % (A) 0 %; Eosinophils # (A) 0.1 k/uL (0-0.7); Eosinophils % (A) 0 %; HCT 30.7 % (34.0-46.0); HGB 10.5 gm/dL (11.4-16.0); Lymphocytes # (A) 2.6 k/uL (1.0-4.8); Lymphocytes % (A) 21 %; MCH 32.2 pg (25.0-35.0); MCHC 34.1 g/dL (31.0-37.0); MCV 94.5 fL (80.0-100.0); Mean Platelet Volume 8.9; Monocytes # (A) 0.6 k/uL (0-1.0); Monocytes % (A) 4 %; Neutrophils % (A) 72 %; Platelet Count 152 k/uL (150-450); RBC 3.24 m/uL (3.80-5.40); RDW 14.7 % (11.5-15.5); WBC 12.5 k/uL (3.8-10.6)
[2019-01-12] MEDS: SENNOSIDES-DOCUSATE SODIUM 1 EACH TAB PO SCH ×2 (08:22→19:49)
--- NOTE | 2019-01-12 10:59 | P.PN ---
Progress Note - Text Progress Note Date: 01/12/19 POD 1 from c section with morphine spinal. doing well, denies any parasthesia, lower ext numbness, excessive pruritis or excessive pain. Able to ambulate, urinate this morning.
--- NOTE | 2019-01-12 11:58 | P.PNOBGPC ---
Subjective - Subjective Patient reports: Reports appetite normal, Reports voiding normally, Reports pain well controlled, Reports ambulating normally : doing well Objective - Vital Signs Latest vital signs: Vital Signs Temp Pulse Resp BP Pulse Ox 01/12/19 11:38 17 99 01/12/19 10:00 17 98 01/12/19 08:20 97.9 F 58 L 16 128/89 98 01/12/19 06:00 17 01/12/19 04:00 98.4 F 53 L 16 126/89 98 01/12/19 01:00 18 01/12/19 00:00 18 01/11/19 23:00 18 98 01/11/19 21:00 17 01/11/19 20:00 98.0 F 54 L 18 127/93 98 01/11/19 19:00 16 98 01/11/19 17:00 16 01/11/19 16:00 97.7 F 51 L 16 135/91 01/11/19 15:31 98 01/11/19 15:00 18 01/11/19 14:23 125/78 01/11/19 13:31 18 01/11/19 13:21 135/96 Intake and Output 01/11/19 01/12/19 01/12/19 22:59 06:59 14:59 Intake Total 1000 600 Output Total 600 900 Balance 400 -300 Intake: IV 1000 Lactated Ringers 1,000 ml 1000 @ 125 mls/hr IV .Q8H [facility] Rx#:[id number] Oral 600 Output: Urine 600 900 Other: Voiding Method Indwelling Catheter - Exam Extremities: Present: normal Abdomen: Present: normal appearance, soft. Absent: distention, tenderness Incision: Present: normal, dry, intact Uterus: Present: normal, firm (The uterine fundus is tonic and appropriately tender around the umbilicus.) - Labs Labs: Abnormal Lab Results - Last 24 Hours (Table) 01/12/19 Range/Units 06:58 WBC 12.5 H (3.8-10.6) k/uL RBC 3.24 L (3.80-5.40) m/uL Hgb 10.5 L (11.4-16.0) gm/dL Hct 30.7 L (34.0-46.0) % Neutrophils # 9.0 H (1.3-7.7) k/uL Assessment and Plan (1) Status post section Current Visit: Yes Status: Acute Code(s): Z98.891 - HISTORY OF UTERINE SCAR FROM PREVIOUS SURGERY SNOMED Code(s): 773259897 Plan: Vital signs or return to normal and there is no evidence of ongoing preeclampsia. Continue routine postoperative and care. I would anticipate probable discharge home tomorrow pending complications. I have again encouraged emulation always routinely.
[2019-01-12] MEDS: IBUPROFEN 600 MG TAB PO PRN ×2 (13:08→19:49)
[2019-01-12] MEDS: LACTATED RINGERS 1,000 ML IV SCH ×2 (20:12→20:13)
[2019-01-13 00:07] VITALS: TEMP 98.4
[2019-01-13] MEDS: HYDROcodone/APAP 5-325MG 1 EACH TAB PO PRN (02:41)
[2019-01-13] MEDS: SENNOSIDES-DOCUSATE SODIUM 1 EACH TAB PO SCH (07:55)
[2019-01-13] MEDS: IBUPROFEN 600 MG TAB PO PRN (07:55)
[2019-01-13 08:06] VITALS: BP 124/83; PULSE 70; RESP 16
--- NOTE | 2019-01-13 12:06 | P.DS ---
Providers Date of admission: 01/11/19 07:30 Expected date of discharge: 01/13/19 Attending physician: Tracey Ness Primary care physician: Stated None - Discharge Diagnosis(es) (1) Status post section Current Visit: Yes Status: Acute Hospital Course: The patient is a 23-year-old 3 para 1011 admitted at 38 and one sevenths weeks by good dating parameters. She is admitted with severe right upper quadrant pain as well as elevated blood pressures. She additionally had elevated liver functions. As result, the diagnosis of preeclampsia was made and she was admitted for repeat low transverse section which had been planned for next week. She additionally had requested intraoperative tubal occlusion with Filshie clips. She therefore was taken the operating room where she was delivered by repeat low transverse section of a viable 6 lbs. 11 oz. baby boy with Apgars of 9 at 1 minute and 9 at 5 minutes. Bilateral tub al occlusion was accomplished intraoperatively as well. Her postoperative course was unremarkable with vital signs remained stable and her temperature was afebrile throughout. She was deemed stable for discharge on post operative day #2 and was discharged home to follow-up in the office in 2 weeks for incision check and 6 weeks routinely. Discharge instructions included calling for any significantly increased bleeding or foul-smelling lochia, significantly increased fever abdominal pain, perineal complaints, breast complaints, incisional complaints, or anything else that concerned her. She was additionally instructed to have nothing in the vagina for at least 6 weeks time to include intercourse and to abstain from any heavy lifting over the same period of time. She was lastly instructed to do no driving until off of all pain medications or 2 weeks' time, whichever came first. She understood her instructions and agrees to follow up as noted above. Discharge medications included continued vitamins as she has opted to breast-feed. She additionally was provided with a prescription for [place] 5/325 mg, 1-2 by mouth every 6 hours when necessary pain, #20 dispensed with no refills. She additionally was use [id number] analgesic pain medications as needed. Maternal blood type is A+ and rubella status is nonimmune. She therefore was to receive the MMR vaccination prior to discharge. Discharge hemoglobin and hematocrit were 10.5 and 30.7 respectively. Procedures: #1. Repeat low transverse section #2. Intraoperative bilateral tubal occlusion with Filshie clips Patient Condition at Discharge: Stable Plan - Discharge Summary New Discharge Prescriptions: No Action Vmu-Xtkg-Qozlk Acid [-U Capsule (formulary)] 1 cap PO HS Discharge Medication List Kwc-Bqzq-Qqdsu Acid [-U Capsule (formulary)] 1 cap PO HS 07/18/18 [History] Follow up Appointment(s)/Referral(s): Fatou Viveros MD [STAFF PHYSICIAN] - 2 Weeks Discharge Disposition: HOME SELF-CARE
== END 2019-01-13 12:45 | disposition home or self-care (01) | DRG 785 ==
LOC: FBPOP 04:29 → 4FBP 07:30
PROVIDERS: ADMIT Obstetrics & Gynecology; ATTEND Obstetrics & Gynecology
PROC: 10D00Z1 Extraction of Products of Conception, Low, Open Approach (ICD-10-PCS; principal; 2019-01-11 08:15)
PROC: 0UL70CZ Occlusion of Bilateral Fallopian Tubes with Extraluminal Device, Open Approach (ICD-10-PCS; principal; 2019-01-11 08:15)
DX: O14.94 Unspecified pre-eclampsia, complicating childbirth (principal); O34.211 Maternal care for low transverse scar from previous cesarean delivery; O69.81X0 Labor and delivery complicated by cord around neck, without compression, not applicable or unspecified; O77.0 Labor and delivery complicated by meconium in amniotic fluid; G43.909 Migraine, unspecified, not intractable, without status migrainosus; Z30.2 Encounter for sterilization; Z37.0 Single live birth; Z37.1 Single stillbirth; Z3A.38 38 weeks gestation of pregnancy
CPT/HCPCS: 59025; 81001; 82565; 83615; 84156; 84450; 84460; 84520; 84550; 85025; 86850; 86900; 86901; 90707

== ENCOUNTER 2019-03-27 09:26 | Emergency (ER) | payer BC, OTHER ==
[2019-03-27 09:38] VITALS: TEMP 98.2
[2019-03-27] MEDS ORDERED: PANTOPRAZOLE 40 MG/10 ML VIAL IVP STA (10:17)
[2019-03-27] MEDS ORDERED: KETOROLAC 30 MG/ML 1 ML VIAL IVP STA (10:17)
[2019-03-27] MEDS ORDERED: MORPHINE SULFATE 2 MG/ML SYRINGE IVP STA (10:17)
[2019-03-27] MEDS ORDERED: ONDANSETRON 4 MG/2 ML VIAL IVP STA (10:17)
[2019-03-27 10:18] LABS: Appearance,Urine Cloudy (Clear); Bacteria,Urine Rare /hpf; Bilirubin,Urine Negative (Negative); Blood,Urine Negative (Negative); Calcium Oxalate Crystals,Urine Many /hpf; Color,Urine Yellow; Glucose,Urine (UA) Negative (Negative); Ketones,Urine Negative (Negative); Leukocyte Esterase,Urine Moderate (Negative); Mucus,Urine Few /hpf; Nitrite,Urine Negative (Negative); Protein,Urine Trace (Negative); RBC,Urine 7 /hpf (0-5); Specific Gravity,Urine 1.029 (1.001-1.035); Squamous Epithelial Cell,Urine 10 /hpf (0-4); Urobilinogen,Urine <2.0 mg/dL (<2.0); WBC,Urine 7 /hpf (0-5)
--- NOTE | 2019-03-27 10:38 | XR ---
EXAMINATION TYPE: XR KUB DATE OF EXAM: 03/27/2019 COMPARISON: 07/16/2013 HISTORY: Pain TECHNIQUE: Single supine KUB image of the abdomen is obtained FINDINGS: Small bowel demonstrates no evidence for dilatation or air fluid levels. Gas and fecal material is seen in non-distended colon. No convincing evidence for pneumoperitoneum. No unusual calcifications. The lung bases are clear. The osseous structures are intact. IMPRESSION: 1. Overall nonobstructive bowel gas pattern.
[2019-03-27 10:43] LABS: Basophils # (A) 0.1 k/uL (0-0.2); Basophils % (A) 1 %; Eosinophils % (A) 14 %; HCT 39.6 % (34.0-46.0); HGB 13.2 gm/dL (11.4-16.0); Lymphocytes # (A) 2.2 k/uL (1.0-4.8); Lymphocytes % (A) 31 %; MCH 31.5 pg (25.0-35.0); MCHC 33.2 g/dL (31.0-37.0); MCV 94.7 fL (80.0-100.0); Mean Platelet Volume 6.3; Monocytes # (A) 0.3 k/uL (0-1.0); Monocytes % (A) 5 %; Neutrophils # (A) 3.2 k/uL (1.3-7.7); Neutrophils % (A) 47 %; Platelet Count 266 k/uL (150-450); RBC 4.18 m/uL (3.80-5.40); RDW 12.3 % (11.5-15.5)
[2019-03-27 10:51] LABS: ALT 33 U/L (9-52); AST 23 U/L (14-36); African American GFR (CKD) >90 (>60 ml/min/1.73 sqM); Albumin 4.3 g/dL (3.5-5.0); Alkaline Phosphatase 96 U/L (38-126); Amylase 57 U/L (30-110); Anion Gap 10 mmol/L; Blood Urea Nitrogen 14 mg/dL (7-17); Calcium 9.5 mg/dL (8.4-10.2); Carbon Dioxide 22 mmol/L (22-30); Chloride 110 mmol/L (98-107); Glucose 84 mg/dL (74-99); Sodium 142 mmol/L (137-145); Total Bilirubin 0.4 mg/dL (0.2-1.3); Total Protein 7.5 g/dL (6.3-8.2)
[2019-03-27 10:53] LABS: Partial Thromboplastin Time 25.1 sec (22.0-30.0); Prothrombin Time 10.3 sec (9.0-12.0)
--- NOTE | 2019-03-27 10:56 | ED ---
Abdominal Pain HPI - General Chief Complaint: Abdominal Pain Stated Complaint: abd pain Time Seen by Provider: 03/27/19 09:47 Source: patient, RN notes reviewed, old records reviewed Mode of arrival: ambulatory Limitations: no limitations - History of Present Illness Initial Comments: 23-year-old female presents today for left-sided abdominal pain, nausea and vomiting. Symptoms started to be worse 3 days ago. Patient has had no fevers or chills. Patient denies any associated chest pain or shortness of breath. She states that she's had no associated change in urination or bowel habits. She is currently breast-feeding. - Related Data Home Medications Medication Instructions Recorded Confirmed Grc-Uogl-Lyjyk Acid 1 cap PO HS 07/18/18 01/11/19 [-U Capsule (formulary)] Previous Rx's Medication Instructions Recorded Ondansetron Odt [Zofran Odt] 4 mg PO Q8HR PRN #12 tab 03/27/19 Pantoprazole [Protonix] 40 mg PO DAILY #40 tablet. 03/27/19 Allergies Allergy/AdvReac Type Severity Reaction Status Date / Time No Known Allergies Allergy Verified 03/27/19 09:35 Review of Systems ROS Statement: Those systems with pertinent positive or pertinent negative responses have been documented in the HPI. ROS Other: All systems not noted in ROS Statement are negative. Past Medical History Past Medical History: No Reported History Additional Past Medical History / Comment(s): migraines History of Any Multi-Drug Resistant Organisms: None Reported Past Surgical History: Section Additional Past Surgical History / Comment(s): 2013 Past Psychological History: ADD/ADHD, Bipolar, Depression Smoking Status: Never smoker Past Alcohol Use History: None Reported Past Drug Use History: None Reported - Past Family History Mother Family Medical History: Hypertension General Exam - General Exam Comments Initial Comments: 23-year-old female. No distress. Limitations: no limitations General appearance: alert, in no apparent distress Head exam: Present: atraumatic, normocephalic, normal inspection Eye exam: Present: normal appearance, PERRL, EOMI. Absent: scleral icterus, conjunctival injection, periorbital swelling ENT exam: Present: normal exam, mucous membranes moist Neck exam: Present: normal inspection. Absent: tenderness, meningismus, lymphadenopathy Respiratory exam: Present: normal lung sounds bilaterally. Absent: respiratory distress, wheezes, rales, rhonchi, stridor Cardiovascular Exam: Present: regular rate, normal rhythm, normal heart sounds. Absent: systolic murmur, diastolic murmur, rubs, gallop, clicks GI/Abdominal exam: Present: soft, normal bowel sounds. Absent: distended, tenderness, guarding, rebound, rigid Extremities exam: Present: normal inspection, full ROM, normal capillary refill. Absent: tenderness, pedal edema, joint swelling, calf tenderness Back exam: Present: normal inspection Neurological exam: Present: alert, oriented X3, CN II-XII intact Psychiatric exam: Present: normal affect, normal mood Skin exam: Present: warm, dry, intact, normal color. Absent: rash Course Vital Signs 03/27/19 09:35 Temperature 98.2 F Pulse Rate 85 Respiratory 18 Rate Blood Pressure 116/88 O2 Sat by Pulse 97 Oximetry Medical Decision Making - Medical Decision Making This is a 23-year-old female presents today for evaluation for epigastric and left-sided abdominal pain. Patient reports symptoms of been going on for 3 days. She complains of some nausea and vomiting. Patient has normal lab work. Urinalysis showed some mild red blood cells and white blood cells. She has no flank pain concerning for kidney stone. I discussed the Patient can be treated at this time for gastritis, and she recommended follow-up with primary care doctor. QUESTIONS were answered and return parameters were discussed. - Lab Data Result diagrams: 03/27/19 10:27 03/27/19 10:27 Lab Results 03/27/19 03/27/19 03/27/19 Range/Units 09:50 09:50 10:27 WBC (3.8-10.6) k/uL RBC (3.80-5.40) m/uL Hgb (11.4-16.0) gm/dL Hct (34.0-46.0) % MCV (80.0-100.0) fL MCH (25.0-35.0) pg MCHC (31.0-37.0) g/dL RDW (11.5-15.5) % Plt Count (150-450) k/uL Neutrophils % % Lymphocytes % % Monocytes % % Eosinophils % % Basophils % % Neutrophils # (1.3-7.7) k/uL Lymphocytes # (1.0-4.8) k/uL Monocytes # (0-1.0) k/uL Eosinophils # (0-0.7) k/uL Basophils # (0-0.2) k/uL PT (9.0-12.0) sec INR (<1.2) APTT (22.0-30.0) sec Sodium 142 (137-145) mmol/L Potassium 4.0 (3.5-5.1) mmol/L Chloride 110 H (98-107) mmol/L Carbon Dioxide 22 (22-30) mmol/L Anion Gap 10 mmol/L BUN 14 (7-17) mg/dL Creatinine 0.68 (0.52-1.04) mg/dL Est GFR (CKD-EPI)AfAm >90 (>60 ml/min/1.73 sqM) Est GFR (CKD-EPI)NonAf >90 (>60 ml/min/1.73 sqM) Glucose 84 (74-99) mg/dL Calcium 9.5 (8.4-10.2) mg/dL Total Bilirubin 0.4 (0.2-1.3) mg/dL AST 23 (14-36) U/L ALT 33 (9-52) U/L Alkaline Phosphatase 96 (38-126) U/L Total Protein 7.5 (6.3-8.2) g/dL Albumin 4.3 (3.5-5.0) g/dL Amylase 57 (30-110) U/L Lipase 90 (23-300) U/L Urine Color Yellow Urine Appearance Cloudy H (Clear) Urine pH 6.0 (5.0-8.0) Ur Specific [place] 1.029 (1.001-1.035) Urine Protein Trace H (Negative) Urine Glucose (UA) Negative (Negative) Urine Ketones Negative (Negative) Urine Blood Negative (Negative) Urine Nitrite Negative (Negative) Urine Bilirubin Negative (Negative) Urine Urobilinogen <2.0 (<2.0) mg/dL Ur Leukocyte Esterase Moderate H (Negative) Urine RBC 7 H (0-5) /hpf Urine WBC 7 H (0-5) /hpf Ur Squamous Epith Cells 10 H (0-4) /hpf Calcium Oxalate Crystal Many H (None) /hpf Urine Bacteria Rare H (None) /hpf Urine Mucus Few H (None) /hpf Urine HCG, Qual Not Detected (Not Detectd) 03/27/19 03/27/19 Range/Units 10:27 10:27 WBC 7.0 (3.8-10.6) k/uL RBC 4.18 (3.80-5.40) m/uL Hgb 13.2 (11.4-16.0) gm/dL Hct 39.6 (34.0-46.0) % MCV 94.7 (80.0-100.0) fL MCH 31.5 (25.0-35.0) pg MCHC 33.2 (31.0-37.0) g/dL RDW 12.3 (11.5-15.5) % Plt Count 266 (150-450) k/uL Neutrophils % 47 % Lymphocytes % 31 % Monocytes % 5 % Eosinophils % 14 % Basophils % 1 % Neutrophils # 3.2 (1.3-7.7) k/uL Lymphocytes # 2.2 (1.0-4.8) k/uL Monocytes # 0.3 (0-1.0) k/uL Eosinophils # 1.0 H (0-0.7) k/uL Basophils # 0.1 (0-0.2) k/uL PT 10.3 (9.0-12.0) sec INR 1.0 (<1.2) APTT 25.1 (22.0-30.0) sec Sodium (137-145) mmol/L Potassium (3.5-5.1) mmol/L Chloride (98-107) mmol/L Carbon Dioxide (22-30) mmol/L Anion Gap mmol/L BUN (7-17) mg/dL Creatinine (0.52-1.04) mg/dL Est GFR (CKD-EPI)AfAm (>60 ml/min/1.73 sqM) Est GFR (CKD-EPI)NonAf (>60 ml/min/1.73 sqM) Glucose (74-99) mg/dL Calcium (8.4-10.2) mg/dL Total Bilirubin (0.2-1.3) mg/dL AST (14-36) U/L ALT (9-52) U/L Alkaline Phosphatase (38-126) U/L Total Protein (6.3-8.2) g/dL Albumin (3.5-5.0) g/dL Amylase (30-110) U/L Lipase (23-300) U/L Urine Color Urine Appearance (Clear) Urine pH (5.0-8.0) Ur Specific [place] (1.001-1.035) Urine Protein (Negative) Urine Glucose (UA) (Negative) Urine Ketones (Negative) Urine Blood (Negative) Urine Nitrite (Negative) Urine Bilirubin (Negative) Urine Urobilinogen (<2.0) mg/dL Ur Leukocyte Esterase (Negative) Urine RBC (0-5) /hpf Urine WBC (0-5) /hpf Ur Squamous Epith Cells (0-4) /hpf Calcium Oxalate Crystal (None) /hpf Urine Bacteria (None) /hpf Urine Mucus (None) /hpf Urine HCG, Qual (Not Detectd) - Radiology Data Radiology results: report reviewed Normal KUB Disposition Clinical Impression: Abdominal pain Disposition: HOME SELF-CARE Condition: Good Instructions (If sedation given, give patient instructions): Abdominal Pain (ED) Additional Instructions: Please use medication as discussed. Please follow up with family doctor if symptoms have not improved over the next two days. Please return to the emergency room if your symptoms increase or worsen or for any other concerns. Prescriptions: Pantoprazole [Protonix] 40 mg PO DAILY #40 tablet. Ondansetron Odt [Zofran Odt] 4 mg PO Q8HR PRN #12 tab PRN Reason: Nausea Is patient prescribed a controlled substance at d/c from ED?: No Referrals: Erica Gutierrez DO [Primary Care Provider] - 1-2 days Time of Disposition: 12:04
[2019-03-27] MEDS ORDERED: SODIUM CHLORIDE 0.9% 1,000 ML IV ONE (11:24)
[2019-03-27 12:26] VITALS: BP 107/64; PULSE 60; RESP 16
== END 2019-03-27 12:32 | disposition home or self-care (01) ==
LOC: EC 09:26
DX: R10.13 Epigastric pain (principal); R31.9 Hematuria, unspecified; R82.998 Other abnormal findings in urine; R11.2 Nausea with vomiting, unspecified; Z53.8 Procedure and treatment not carried out for other reasons
CPT/HCPCS: 36415; 80053; 82150; 83690; 85025; 85610; 85730; 81001; 81025; 74018; 99284; 96374; 96375 ×2; 96361; J2405; J1885; C9113

== ENCOUNTER 2019-11-19 18:49 | Emergency (ER) | payer OTHER ==
[2019-11-19 18:54] VITALS: BP 132/80; PULSE 98; RESP 18; TEMP 98.5
[2019-11-19] MEDS ORDERED: SODIUM CHLORIDE 0.9% 500 ML 500 ML IV ONE (19:33)
--- NOTE | 2019-11-19 19:37 | ED ---
General Adult HPI - General Chief complaint: Vaginal Bleeding Stated complaint: Vag bleeding [id number] Time Seen by Provider: 11/19/19 19:07 Source: patient, RN notes reviewed Mode of arrival: ambulatory Limitations: no limitations - History of Present Illness Initial comments: 24-year-old female presents to the emergency department for vaginal bleedi ng. Patient states that she gave about 10 months ago. States she has been breast-feeding. Patient states she had not had a period until September 23. States she started bleeding at that time and bleeding has not stopped. States she starting to feel tired. Talk to her OB who recommended she take iron tablets and take ibuprofen for the next few days but it did not help. Therefore OB recommended she come to the emergency room to be evaluated. Patient denies any abdominal pain.Patient has no other complaints at this time including shortness of breath, chest pain, abdominal pain, nausea or vomiting, headache, or visual changes. - Related Data Home Medications Medication Instructions Recorded Confirmed Qvd-Jgck-Oiarl Acid 1 cap PO HS 07/18/18 01/11/19 [-U Capsule (formulary)] Previous Rx's Medication Instructions Recorded Ondansetron Odt [Zofran Odt] 4 mg PO Q8HR PRN #12 tab 03/27/19 Pantoprazole [Protonix] 40 mg PO DAILY #40 tablet. 03/27/19 Allergies Allergy/AdvReac Type Severity Reaction Status Date / Time No Known Allergies Allergy Verified 11/19/19 18:54 Review of Systems ROS Statement: Those systems with pertinent positive or pertinent negative responses have been documented in the HPI. ROS Other: All systems not noted in ROS Statement are negative. Past Medical History Past Medical History: No Reported History Additional Past Medical History / Comment(s): migraines History of Any Multi-Drug Resistant Organisms: None Reported Past Surgical History: Section Additional Past Surgical History / Comment(s): 2012, 2019 Past Psychological History: ADD/ADHD, Bipolar, Depression Smoking Status: Never smoker Past Alcohol Use History: None Reported Past Drug Use History: None Reported - Past Family History Mother Family Medical History: Hypertension General Exam Limitations: no limitations General appearance: alert, in no apparent distress Head exam: Present: atraumatic, normocephalic, normal inspection Eye exam: Present: normal appearance, PERRL, EOMI. Absent: scleral icterus, conjunctival injection, periorbital swelling ENT exam: Present: normal exam, mucous membranes moist Neck exam: Present: normal inspection, full ROM. Absent: tenderness, meningismus, lymphadenopathy Respiratory exam: Present: normal lung sounds bilaterally. Absent: respiratory distress, wheezes, rales, rhonchi, stridor Cardiovascular Exam: Present: regular rate, normal rhythm, normal heart sounds. Absent: systolic murmur, diastolic murmur, rubs, gallop, clicks GI/Abdominal exam: Present: soft, normal bowel sounds. Absent: distended, tenderness, guarding, rebound, rigid External exam: Present: normal external exam. Absent: erythema, swelling, lesions, lacerations, ecchymosis Speculum exam: Present: vaginal bleeding (mild). Absent: normal speculum exam, erythema, vaginal discharge, cervical discharge, foreign body, tissue, laceration By manual exam: Present: normal by manual exam. Absent: cervical motion tenderness, adnexal tenderness, adnexal mass, uterine enlargement, uterine tenderness Course Vital Signs 11/19/19 18:50 Temperature 98.5 F Pulse Rate 98 Respiratory 18 Rate Blood Pressure 132/80 O2 Sat by Pulse 98 Oximetry Medical Decision Making - Medical Decision Making Vitals are stable. Patient is well appearing. She is not having any abdominal pain. She is not orthostatic. CBC is unremarkable, hemoglobin is stable at 12.3. CMP unremarkable. Blood in urine is likely secondary to vaginal bleeding. Patient states that she switched to Medicaid and did not do the paperwork so they did not pick an insurance plan that her OB was on. This is why she is having trouble following up however she was able to speak with her OB. I recommended trying to speak with her OB again to see if there are any other possibilities to help with this such as oral contraceptive pills. Patient is agreeable to this. If she has any worsening symptoms she will return here to the emergency room. - Lab Data Result diagrams: 11/19/19 19:47 11/19/19 19:47 Lab Results 11/19/19 11/19/19 11/19/19 Range/Units 19:47 19:47 19:47 WBC 7.2 (3.8-10.6) k/uL RBC 3.75 L (3.80-5.40) m/uL Hgb 12.3 (11.4-16.0) gm/dL Hct 36.5 (34.0-46.0) % MCV 97.2 (80.0-100.0) fL MCH 32.9 (25.0-35.0) pg MCHC 33.8 (31.0-37.0) g/dL RDW 13.2 (11.5-15.5) % Plt Count 271 (150-450) k/uL Neutrophils % 50 % Lymphocytes % 39 % Monocytes % 6 % Eosinophils % 3 % Basophils % 0 % Neutrophils # 3.6 (1.3-7.7) k/uL Lymphocytes # 2.8 (1.0-4.8) k/uL Monocytes # 0.4 (0-1.0) k/uL Eosinophils # 0.2 (0-0.7) k/uL Basophils # 0.0 (0-0.2) k/uL PT (9.0-12.0) sec INR (<1.2) APTT (22.0-30.0) sec Sodium (137-145) mmol/L Potassium (3.5-5.1) mmol/L Chloride (98-107) mmol/L Carbon Dioxide (22-30) mmol/L Anion Gap mmol/L BUN (7-17) mg/dL Creatinine (0.52-1.04) mg/dL Est GFR (CKD-EPI)AfAm (>60 ml/min/1.73 sqM) Est GFR (CKD-EPI)NonAf (>60 ml/min/1.73 sqM) Glucose (74-99) mg/dL Calcium (8.4-10.2) mg/dL Total Bilirubin (0.2-1.3) mg/dL AST (14-36) U/L ALT (4-34) U/L Alkaline Phosphatase (38-126) U/L Total Protein (6.3-8.2) g/dL Albumin (3.5-5.0) g/dL Urine Color Yellow Urine Appearance Cloudy H (Clear) Urine pH 6.0 (5.0-8.0) Ur Specific [place] 1.024 (1.001-1.035) Urine Protein 1+ H (Negative) Urine Glucose (UA) Negative (Negative) Urine Ketones Negative (Negative) Urine Blood Large H (Negative) Urine Nitrite Negative (Negative) Urine Bilirubin Negative (Negative) Urine Urobilinogen 2.0 (<2.0) mg/dL Ur Leukocyte Esterase Small H (Negative) Urine RBC 49 H (0-5) /hpf Urine WBC 4 (0-5) /hpf Ur Squamous Epith Cells 11 H (0-4) /hpf Urine Bacteria Rare H (None) /hpf Urine Mucus Many H (None) /hpf Urine HCG, Qual Not Detected (Not Detectd) 11/19/19 11/19/19 Range/Units 19:47 19:47 WBC (3.8-10.6) k/uL RBC (3.80-5.40) m/uL Hgb (11.4-16.0) gm/dL Hct (34.0-46.0) % MCV (80.0-100.0) fL MCH (25.0-35.0) pg MCHC (31.0-37.0) g/dL RDW (11.5-15.5) % Plt Count (150-450) k/uL Neutrophils % % Lymphocytes % % Monocytes % % Eosinophils % % Basophils % % Neutrophils # (1.3-7.7) k/uL Lymphocytes # (1.0-4.8) k/uL Monocytes # (0-1.0) k/uL Eosinophils # (0-0.7) k/uL Basophils # (0-0.2) k/uL PT 9.6 (9.0-12.0) sec INR 0.9 (<1.2) APTT 22.6 (22.0-30.0) sec Sodium 138 (137-145) mmol/L Potassium 3.7 (3.5-5.1) mmol/L Chloride 109 H (98-107) mmol/L Carbon Dioxide 20 L (22-30) mmol/L Anion Gap 9 mmol/L BUN 6 L (7-17) mg/dL Creatinine 0.56 (0.52-1.04) mg/dL Est GFR (CKD-EPI)AfAm >90 (>60 ml/min/1.73 sqM) Est GFR (CKD-EPI)NonAf >90 (>60 ml/min/1.73 sqM) Glucose 91 (74-99) mg/dL Calcium 9.0 (8.4-10.2) mg/dL Total Bilirubin 0.3 (0.2-1.3) mg/dL AST 22 (14-36) U/L ALT 20 (4-34) U/L Alkaline Phosphatase 76 (38-126) U/L Total Protein 7.3 (6.3-8.2) g/dL Albumin 4.3 (3.5-5.0) g/dL Urine Color Urine Appearance (Clear) Urine pH (5.0-8.0) Ur Specific [place] (1.001-1.035) Urine Protein (Negative) Urine Glucose (UA) (Negative) Urine Ketones (Negative) Urine Blood (Negative) Urine Nitrite (Negative) Urine Bilirubin (Negative) Urine Urobilinogen (<2.0) mg/dL Ur Leukocyte Esterase (Negative) Urine RBC (0-5) /hpf Urine WBC (0-5) /hpf Ur Squamous Epith Cells (0-4) /hpf Urine Bacteria (None) /hpf Urine Mucus (None) /hpf Urine HCG, Qual (Not Detectd) Disposition Clinical Impression: Dysfunctional uterine bleeding Disposition: HOME SELF-CARE Condition: Good Instructions (If sedation given, give patient instructions): Dysmenorrhea (ED) Additional Instructions: Please follow-up with your OB as soon as possible. Please return to the emergency room for any worsening symptoms. Is patient prescribed a controlled substance at d/c from ED?: No Referrals: Lucien Theodore MD [REFERRING] - 1-2 days Time of Disposition: 20:23
[2019-11-19 20:02] LABS: Basophils % (A) 0 %; Eosinophils # (A) 0.2 k/uL (0-0.7); Eosinophils % (A) 3 %; HCT 36.5 % (34.0-46.0); HGB 12.3 gm/dL (11.4-16.0); Lymphocytes # (A) 2.8 k/uL (1.0-4.8); Lymphocytes % (A) 39 %; MCH 32.9 pg (25.0-35.0); MCHC 33.8 g/dL (31.0-37.0); MCV 97.2 fL (80.0-100.0); Mean Platelet Volume 7.6; Monocytes # (A) 0.4 k/uL (0-1.0); Monocytes % (A) 6 %; Neutrophils # (A) 3.6 k/uL (1.3-7.7); Neutrophils % (A) 50 %; Platelet Count 271 k/uL (150-450); RBC 3.75 m/uL (3.80-5.40); RDW 13.2 % (11.5-15.5); WBC 7.2 k/uL (3.8-10.6)
[2019-11-19 20:07] LABS: Appearance,Urine Cloudy (Clear); Bacteria,Urine Rare /hpf; Bilirubin,Urine Negative (Negative); Blood,Urine Large (Negative); Color,Urine Yellow; Glucose,Urine (UA) Negative (Negative); Ketones,Urine Negative (Negative); Leukocyte Esterase,Urine Small (Negative); Mucus,Urine Many /hpf; Nitrite,Urine Negative (Negative); Protein,Urine 1+ (Negative); RBC,Urine 49 /hpf (0-5); Specific Gravity,Urine 1.024 (1.001-1.035); Squamous Epithelial Cell,Urine 11 /hpf (0-4); WBC,Urine 4 /hpf (0-5)
[2019-11-19 20:08] LABS: INR 0.9 (<1.2); Partial Thromboplastin Time 22.6 sec (22.0-30.0); Prothrombin Time 9.6 sec (9.0-12.0)
[2019-11-19 20:11] LABS: ALT 20 U/L (4-34); AST 22 U/L (14-36); African American GFR (CKD) >90 (>60 ml/min/1.73 sqM); Albumin 4.3 g/dL (3.5-5.0); Alkaline Phosphatase 76 U/L (38-126); Anion Gap 9 mmol/L; Blood Urea Nitrogen 6 mg/dL (7-17); Carbon Dioxide 20 mmol/L (22-30); Chloride 109 mmol/L (98-107); Glucose 91 mg/dL (74-99); Non-African American GFR(CKD) >90 (>60 ml/min/1.73 sqM); Potassium 3.7 mmol/L (3.5-5.1); Sodium 138 mmol/L (137-145); Total Bilirubin 0.3 mg/dL (0.2-1.3); Total Protein 7.3 g/dL (6.3-8.2)
== END 2019-11-19 20:45 | disposition home or self-care (01) ==
LOC: EC 18:49
DX: N93.8 Other specified abnormal uterine and vaginal bleeding (principal)
CPT/HCPCS: 36415; 80053; 81001; 81025; 85025; 85610; 85730; 86850; 86900; 86901; 96360; 99284

== ENCOUNTER 2021-10-20 21:54 | Emergency (ER) | payer OTHER ==
[2021-10-20 22:30] VITALS: TEMP 98
[2021-10-20] MEDS ORDERED: SODIUM CHLORIDE 0.9% 500 ML 500 ML IV STA (23:03)
[2021-10-20 23:13] LABS: Basophils % (A) 1 %; Eosinophils # (A) 0.2 k/uL (0-0.7); Eosinophils % (A) 2 %; HGB 13.1 gm/dL (11.4-16.0); Lymphocytes % (A) 33 %; MCH 31.5 pg (25.0-35.0); MCHC 32.8 g/dL (31.0-37.0); MCV 96.1 fL (80.0-100.0); Mean Platelet Volume 7.2; Monocytes # (A) 0.4 k/uL (0-1.0); Monocytes % (A) 4 %; Neutrophils # (A) 5.3 k/uL (1.3-7.7); Neutrophils % (A) 58 %; Platelet Count 353 k/uL (150-450); RBC 4.17 m/uL (3.80-5.40); RDW 12.9 % (11.5-15.5)
[2021-10-20 23:27] LABS: ALT 50 U/L (4-34); AST 37 U/L (14-36); African American GFR (CKD) >90 (>60 ml/min/1.73 sqM); Albumin 4.7 g/dL (3.5-5.0); Alkaline Phosphatase 62 U/L (38-126); Anion Gap 9 mmol/L; Blood Urea Nitrogen 10 mg/dL (7-17); Calcium 9.5 mg/dL (8.4-10.2); Carbon Dioxide 25 mmol/L (22-30); Chloride 104 mmol/L (98-107); Glucose 108 mg/dL (74-99); Magnesium 1.8 mg/dL (1.6-2.3); Non-African American GFR(CKD) >90 (>60 ml/min/1.73 sqM); Potassium 4.2 mmol/L (3.5-5.1); Sodium 138 mmol/L (137-145); Total Bilirubin 0.3 mg/dL (0.2-1.3); Total Protein 7.6 g/dL (6.3-8.2)
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
[2021-10-20] MEDS ORDERED: IBUPROFEN 400 MG TAB PO STA (23:57)
[2021-10-20] MEDS ORDERED: ACETAMINOPHEN TAB 325 MG TAB PO STA (23:57)
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
[2021-10-21 01:02] VITALS: RESP 17
[2021-10-21 01:38] VITALS: BP 135/88; PULSE 79
== END 2021-10-21 01:38 | disposition home or self-care (01) ==
LOC: EC 21:54
DX: R55 Syncope and collapse (principal); V89.2XXA Person injured in unspecified motor-vehicle accident, traffic, initial encounter; Y92.481 Parking lot as the place of occurrence of the external cause
CPT/HCPCS: 70450; 71045; 80053; 83735; 84484; 85025; 93005; 99284

== ENCOUNTER 2023-01-03 15:11 | Emergency (ER) | payer OTHER ==
--- NOTE | 2023-01-03 16:24 | ED ---
General Adult HPI - General Source: patient, RN notes reviewed Mode of arrival: ambulatory Limitations: no limitations <Taniya Hickman - Last Filed: 01/03/23 23:58> - History of Present Illness -: days(s) (3) Location: back (left flank), abdomen (llq) Severity scale (1-10): 10 Quality: sharp Consistency: constant Improves with: none Associated Symptoms: denies other symptoms Treatments Prior to Arrival: none <Bo Jordan - Last Filed: 01/04/23 00:16> - General Chief complaint: Abdominal Pain Stated complaint: back pain Time Seen by Provider: 01/03/23 16:23 - History of Present Illness Initial comments: 27 year old female presents to the emergency department with a chief complaint of Left flank pain that radiates into the LLQ. denies fever, nausea and vomiting. (Taniya Hickman) 27-year-old well-appearing female presents to the emergency room with complains of sharp left flank pain radiating to her left lower quadrant for past 3 days. Denies any dysuria. States she's had tubal ligation in the past, no concern for . No vaginal discharge. No vomiting but does state he has nausea related to the pain. No fevers. No history of kidney stones. No other medical history. (Bo Jordan) - Related Data Home Medications Medication Instructions Recorded Confirmed No Known Home Medications 01/03/23 01/03/23 Allergies Allergy/AdvReac Type Severity Reaction Status Date / Time No Known Allergies Allergy Verified 01/03/23 20:41 Review of Systems ROS Other: All systems not noted in ROS Statement are negative. <Taniya Hickman - Last Filed: 01/03/23 23:58> ROS Other: All systems not noted in ROS Statement are negative. <Bo Jordan - Last Filed: 01/04/23 00:16> ROS Statement: Those systems with pertinent positive or pertinent negative responses have been documented in the HPI. Past Medical History Past Medical History: No Reported History Additional Past Medical History / Comment(s): migraines History of Any Multi-Drug Resistant Organisms: None Reported Past Surgical History: Section Additional Past Surgical History / Comment(s): 2012, 2018 Past Psychological History: ADD/ADHD, Bipolar, Depression Past Alcohol Use History: None Reported Past Drug Use History: None Reported - Past Family History Mother Family Medical History: Hypertension <Taniya Hickman - Last Filed: 01/03/23 23:58> General Exam Limitations: no limitations <Taniya Hickman - Last Filed: 01/03/23 23:58> General appearance: alert, in no apparent distress Head exam: Present: atraumatic, normocephalic Eye exam: Absent: scleral icterus, periorbital swelling ENT exam: Present: mucous membranes moist Neck exam: Present: full ROM. Absent: meningismus Respiratory exam: Absent: respiratory distress, accessory muscle use Cardiovascular Exam: Present: tachycardia GI/Abdominal exam: Present: soft, tenderness (llq). Absent: distended, guarding, rebound, rigid Extremities exam: Present: normal capillary refill. Absent: pedal edema Back exam: Present: full ROM, CVA tenderness (L). Absent: paraspinal tenderness, vertebral tenderness Neurological exam: Present: alert, oriented X3, normal gait Psychiatric exam: Present: normal affect, normal mood (tearful) Skin exam: Present: warm, dry, normal color. Absent: cyanosis, diaphoretic <Bo Jordan - Last Filed: 01/04/23 00:16> - General Exam Comments Initial Comments: Visual Physical Exam Vital signs reviewed General: Well-appearing, nontoxic, no acute distress. Head: Normocephalic, atraumatic Eyes: PERRLA, EOMI ENT: Airway patent Chest: Nonlabored breathing Skin: No visual rash, normal skin tone Neuro: Alert and oriented 3 Musculoskeletal: No gross abnormalities (Taniya Hickman) Course Vital Signs 01/03/23 01/03/23 01/03/23 15:38 20:18 21:44 Temperature 98.4 F 97.8 F Pulse Rate 100 50 L 65 Respiratory 20 18 18 Rate Blood Pressure 133/86 125/96 130/94 O2 Sat by Pulse 98 100 100 Oximetry Medical Decision Making - Lab Data Result diagrams: 01/03/23 16:58 01/03/23 16:58 <Taniya Hickman - Last Filed: 01/03/23 23:58> - Lab Data Result diagrams: 01/03/23 16:58 01/03/23 16:58 <Bo Jordan - Last Filed: 01/04/23 00:16> - Medical Decision Making I performed the quick note portion of this exam, verbal signature Taniya Hickman PA-C (Taniya Hickman) Was pt. sent in by a medical professional or institution (KRISTEN Quinones, PEARL DIGGER, urgent care, hospital, or fpc...) When possible be specific @ -No Did you speak to anyone other than the patient for history (EMS, parent, family, police, friend...)? What history was obtained from this source @ -No Did you review nursing and triage notes (agree or disagree)? Why? @ -I reviewed and agree with nursing and triage notes Were old charts reviewed (outside hosp., previous admission, EMS record, old EKG, old radiological studies, urgent care reports/EKG's, fpc records)? Report findings @ -No old charts were reviewed Differential Diagnosis (chest pain, altered mental status, abdominal pain women, abdominal pain men, vaginal bleeding, weakness, fever, dyspnea, syncope, headache, dizziness, GI bleed, back pain, seizure, CVA, palpatations, mental health, musculoskeletal)? @ -Differential Abdominal Pain Women: Appendicitis, Cholecystitis, diverticulosis, ischemic bowel, pancreatitis, hepatitis, UTI, gastroenteritis, AAA, incarcerated hernia, bowel obstruction, constipation, inflammatory bowel, hepatitis, peptic ulcer disease, splenic infarction, perforated viscus, vulvitis, ovarian torsion, PID, kidney stone, placenta abruption, this is not meant to be an all-inclusive list EKG interpreted by me (3pts min.). @ -n/a X-rays interpreted by me (1pt min.). @ -None done CT interpreted by me (1pt min.). @ -yes CT abdomen and pelvis interpreted by shows no evidence of obstructive calculi. left renal calculi, mildly enlarged spleen U/S interpreted by me (1pt. min.). @ -None done What testing was considered but not performed or refused? (CT, X-rays, U/S, labs)? Why? @ -None What meds were considered but not given or refused? Why? @ -None Did you discuss the management of the patient with other professionals (professionals i.e. KRISTEN Quinones, PEARL DIGGER, lab, RT, psych nurse, psych social worker, nuisance animal damage control agent, teacher, telecommunications officer, hospice case manager)? Give summary @ -No Was smoking cessation discussed for >3mins.? @ -No Was critical care preformed (if so, how long)? @ -No Were there social determinants of health that impacted care today? How? (Homelessness, low income, unemployed, alcoholism, drug addiction, transportation, low edu. Level, literacy, decrease access to med. care, detention, rehab)? @ -No Was there de-escalation of care discussed even if they declined (Discuss DNR or withdrawal of care, Hospice)? DNR status @ -No What co-morbidities impacted this encounter? (DM, HTN, Smoking, COPD, CAD, Cancer, CVA, ARF, Chemo, Hep., AIDS, mental health diagnosis, sleep apnea, morbid obesity)? @ -Patient has history of ADHD, bipolar, depression Was patient admitted / discharged? Hospital course, mention meds given and route, prescriptions, significant lab abnormalities, going to OR and other pertinent info. @ -Discharged 27-year-old well-appearing female presents to the emergency room with complains of sharp left flank pain radiating to her left lower quadrant for past 3 days. Denies any dysuria. States she's had tubal ligation in the past, no concern for . No vaginal discharge. No vomiting but does state he has nausea related to the pain. No fevers. No history of kidney stones. No other medical history. On physical exam abdomen is soft and minimally tender left lower quadrant and left flank. No right lower quadrant pain, no epigastric pain, no masses. CBC and electrolytes are unremarkable. Urinalysis shows trace ketones small leukocyte esterase and 12 white blood cells and negative nitrites. Sent for culture. Urine test negative. CT abdomen and pelvis interpreted by shows no evidence of obstructive calculi. left renal calculi, mildly enlarged spleen Radiologist interpretation no acute abdominal pelvic process. No obstructive uropathy. Two nonobstructive left renal calculi up to 3mm. Mild splenomegaly. IV fluids and Toradol were given along with Zofran for nausea. Patient feeling better after IV fluids and Toradol. I did speak with patient that this could have been a passed kidney stone. She strictly increase her fluid intake take Tylenol and/or Motrin as needed for any pain or discomfort. She was discharged home and directed the primary care doctor. Return to the emergency room with any new or concerning symptoms including fevers, persistent nausea vomiting or increased pain. She is agreeable to this plan of care. Case discussed with Dr. Roman Undiagnosed new problem with uncertain prognosis? @ -No Drug Therapy requiring intensive monitoring for toxicity (Heparin, Nitro, Insulin, Cardizem)? @ -No Were any procedures done? @ -No Diagnosis/symptom? @ -Flank pain, abdominal pain NOS Acute, or Chronic, or Acute on Chronic? @ -Acute Uncomplicated (without systemic symptoms) or Complicated (systemic symptoms)? @ -Uncomplicated Side effects of treatment? @ -No Exacerbation, Progression, or Severe Exacerbation? @ -No Poses a threat to life or bodily function? How? (Chest pain, [place], [place], pneumonia, PE, COPD, DKA, ARF, appy, cholecystitis, CVA, Diverticulitis, Homicidal, Suicidal, threat to staff... and all critical care pts) @ -No (Bo Jordan) - Lab Data Lab Results 01/03/23 01/03/23 01/03/23 Range/Units 16:58 16:58 19:58 WBC 6.6 (3.8-10.6) k/uL RBC 3.84 (3.80-5.40) m/uL Hgb 12.6 (11.4-16.0) gm/dL Hct 35.9 (34.0-46.0) % MCV 93.6 (80.0-100.0) fL MCH 32.8 (25.0-35.0) pg MCHC 35.0 (31.0-37.0) g/dL RDW 12.3 (11.5-15.5) % Plt Count 250 (150-450) k/uL MPV 7.9 Neutrophils % 48 % Lymphocytes % 43 % Monocytes % 5 % Eosinophils % 1 % Basophils % 1 % Neutrophils # 3.2 (1.3-7.7) k/uL Lymphocytes # 2.9 (1.0-4.8) k/uL Monocytes # 0.3 (0-1.0) k/uL Eosinophils # 0.1 (0-0.7) k/uL Basophils # 0.0 (0-0.2) k/uL Sodium 138 (137-145) mmol/L Potassium 4.0 (3.5-5.1) mmol/L Chloride 107 (98-107) mmol/L Carbon Dioxide 23 (22-30) mmol/L Anion Gap 8 mmol/L BUN 8 (7-17) mg/dL Creatinine 0.63 (0.52-1.04) mg/dL Est GFR (CKD-EPI)AfAm >90 (>60 ml/min/1.73 sqM) Est GFR (CKD-EPI)NonAf >90 (>60 ml/min/1.73 sqM) Glucose 84 (74-99) mg/dL Calcium 9.0 (8.4-10.2) mg/dL Total Bilirubin 0.5 (0.2-1.3) mg/dL AST 28 (14-36) U/L ALT 37 H (4-34) U/L Alkaline Phosphatase 57 (38-126) U/L Total Protein 7.1 (6.3-8.2) g/dL Albumin 4.3 (3.5-5.0) g/dL Urine Color Yellow Urine Appearance Cloudy H (Clear) Urine pH 6.0 (5.0-8.0) Ur Specific [place] 1.024 (1.001-1.035) Urine Protein Trace H (Negative) Urine Glucose (UA) Negative (Negative) Urine Ketones Trace H (Negative) Urine Blood Negative (Negative) Urine Nitrite Negative (Negative) Urine Bilirubin Negative (Negative) Urine Urobilinogen <2.0 (<2.0) mg/dL Ur Leukocyte Esterase Small H (Negative) Urine RBC 9 H (0-5) /hpf Urine WBC 12 H (0-5) /hpf Ur Squamous Epith Cells 15 H (0-4) /hpf Urine Mucus Many H (None) /hpf Urine HCG, Qual (Not Detectd) 01/03/23 Range/Units 19:58 WBC (3.8-10.6) k/uL RBC (3.80-5.40) m/uL Hgb (11.4-16.0) gm/dL Hct (34.0-46.0) % MCV (80.0-100.0) fL MCH (25.0-35.0) pg MCHC (31.0-37.0) g/dL RDW (11.5-15.5) % Plt Count (150-450) k/uL MPV Neutrophils % % Lymphocytes % % Monocytes % % Eosinophils % % Basophils % % Neutrophils # (1.3-7.7) k/uL Lymphocytes # (1.0-4.8) k/uL Monocytes # (0-1.0) k/uL Eosinophils # (0-0.7) k/uL Basophils # (0-0.2) k/uL Sodium (137-145) mmol/L Potassium (3.5-5.1) mmol/L Chloride (98-107) mmol/L Carbon Dioxide (22-30) mmol/L Anion Gap mmol/L BUN (7-17) mg/dL Creatinine (0.52-1.04) mg/dL Est GFR (CKD-EPI)AfAm (>60 ml/min/1.73 sqM) Est GFR (CKD-EPI)NonAf (>60 ml/min/1.73 sqM) Glucose (74-99) mg/dL Calcium (8.4-10.2) mg/dL Total Bilirubin (0.2-1.3) mg/dL AST (14-36) U/L ALT (4-34) U/L Alkaline Phosphatase (38-126) U/L Total Protein (6.3-8.2) g/dL Albumin (3.5-5.0) g/dL Urine Color Urine Appearance (Clear) Urine pH (5.0-8.0) Ur Specific [place] (1.001-1.035) Urine Protein (Negative) Urine Glucose (UA) (Negative) Urine Ketones (Negative) Urine Blood (Negative) Urine Nitrite (Negative) Urine Bilirubin (Negative) Urine Urobilinogen (<2.0) mg/dL Ur Leukocyte Esterase (Negative) Urine RBC (0-5) /hpf Urine WBC (0-5) /hpf Ur Squamous Epith Cells (0-4) /hpf Urine Mucus (None) /hpf Urine HCG, Qual Not Detected (Not Detectd) Disposition <Taniya Hickman - Last Filed: 01/03/23 23:58> Is patient prescribed a controlled substance at d/c from ED?: No Time of Disposition: 21:31 <Bo Jordan - Last Filed: 01/04/23 00:16> Clinical Impression: Flank pain, acute, Abdominal pain Disposition: HOME SELF-CARE Condition: Good Instructions (If sedation given, give patient instructions): Flank Pain (ED), Abdominal Pain (ED) Additional Instructions: Increase your fluid intake. Tylenol and Motrin as needed for pain or discomfort. Follow-up with the primary care doctor next week. Return to the emergency room with any new or concerning symptoms including increased pain, persistent nausea vomiting or fevers. Notify your primary care doctor that you do have 2 kidney stones within the left kidney,your spleen is mildly enlarged. They will need to monitor Referrals: None,Stated [Primary Care Provider] - 1-2 days Forms: Area PCPs
[2023-01-03 17:06] LABS: Basophils % (A) 1 %; Eosinophils # (A) 0.1 k/uL (0-0.7); Eosinophils % (A) 1 %; HCT 35.9 % (34.0-46.0); HGB 12.6 gm/dL (11.4-16.0); Lymphocytes # (A) 2.9 k/uL (1.0-4.8); Lymphocytes % (A) 43 %; MCH 32.8 pg (25.0-35.0); MCV 93.6 fL (80.0-100.0); Mean Platelet Volume 7.9; Monocytes # (A) 0.3 k/uL (0-1.0); Monocytes % (A) 5 %; Neutrophils # (A) 3.2 k/uL (1.3-7.7); Neutrophils % (A) 48 %; Platelet Count 250 k/uL (150-450); RBC 3.84 m/uL (3.80-5.40); RDW 12.3 % (11.5-15.5); WBC 6.6 k/uL (3.8-10.6)
[2023-01-03 17:15] LABS: ALT 37 U/L (4-34); AST 28 U/L (14-36); African American GFR (CKD) >90 (>60 ml/min/1.73 sqM); Albumin 4.3 g/dL (3.5-5.0); Alkaline Phosphatase 57 U/L (38-126); Anion Gap 8 mmol/L; Blood Urea Nitrogen 8 mg/dL (7-17); Carbon Dioxide 23 mmol/L (22-30); Chloride 107 mmol/L (98-107); Glucose 84 mg/dL (74-99); Non-African American GFR(CKD) >90 (>60 ml/min/1.73 sqM); Sodium 138 mmol/L (137-145); Total Bilirubin 0.5 mg/dL (0.2-1.3); Total Protein 7.1 g/dL (6.3-8.2)
[2023-01-03] MEDS ORDERED: ONDANSETRON 4 MG/2 ML VIAL IVP STA (20:00)
[2023-01-03] MEDS ORDERED: SODIUM CHLORIDE 0.9% 500 ML 500 ML IV ONE (20:00)
[2023-01-03] MEDS ORDERED: KETOROLAC 15 MG/ML 1 ML VIAL IVP STA (20:00)
[2023-01-03 20:20] VITALS: RESP 18
[2023-01-03 20:21] LABS: Appearance,Urine Cloudy (Clear); Bilirubin,Urine Negative (Negative); Blood,Urine Negative (Negative); Color,Urine Yellow; Glucose,Urine (UA) Negative (Negative); Ketones,Urine Trace (Negative); Leukocyte Esterase,Urine Small (Negative); Mucus,Urine Many /hpf; Nitrite,Urine Negative (Negative); Protein,Urine Trace (Negative); RBC,Urine 9 /hpf (0-5); Specific Gravity,Urine 1.024 (1.001-1.035); Squamous Epithelial Cell,Urine 15 /hpf (0-4); Urobilinogen,Urine <2.0 mg/dL (<2.0); WBC,Urine 12 /hpf (0-5)
--- NOTE | 2023-01-03 21:07 | CT ---
EXAMINATION TYPE: CT abdomen pelvis wo con CT DLP: 1468.4 mGycm, Automated exposure control for dose reduction was used. DATE OF EXAM: 01/03/2023 9:01 PM COMPARISON: None CLINICAL INDICATION:Female, 27 years old with history of left flank pain; LT flank pain TECHNIQUE: Standard CT of the abdomen and pelvis without IV or oral contrast. Lack of IV or oral co ntrast limits evaluation of solid and hollow organ viscera. Coronal and sagittal reformats were perfo rmed. FINDINGS: Evaluation is limited due to lack of intravenous contrast. LOWER CHEST: Unremarkable ABDOMEN LIVER: Diffusely hypoattenuating parenchyma. GALLBLADDER AND BILE DUCTS: Unremarkable noncontrast appearance PANCREAS: Unremarkable noncontrast appearance SPLEEN: Mildly enlarged measuring 14.4 cm in CC dimension. ADRENAL GLANDS: Unremarkable noncontrast appearance. KIDNEYS AND URETERS: No evidence of hydronephrosis. Nonobstructive 2 left renal calculi measuring up to 3 mm. No perinephric fat stranding or fluid collections. PELVIS BLADDER: Unremarkable REPRODUCTIVE: Right-sided tubal ligation clips identified. Left-sided tubal ligation clip is displace d anteriorly. ABDOMEN & PELVIS STOMACH AND BOWEL: Stomach and duodenum are unremarkable. The appendix is within normal limits. No fo paul bowel wall thickening or surrounding inflammatory changes. No evidence of bowel obstruction. PERITONEUM: No evidence of pneumoperitoneum or free fluid. VASCULATURE: No evidence of aortic aneurysm. Pelvic phleboliths. MUSCULOSKELETAL: No acute osseous abnormalities LYMPH NODES: No gross evidence for lymphadenopathy. SOFT TISSUE/ABDOMINAL WALL: Unremarkable IMPRESSION: 1. No acute abdominal/pelvic process. No obstructive uropathy. 2. Nonobstructive left renal calculi. 3. Mild splenomegaly.
[2023-01-03 21:46] VITALS: BP 130/94; PULSE 65; TEMP 97.8
== END 2023-01-03 21:48 | disposition home or self-care (01) ==
LOC: EC 15:11
DX: N20.0 Calculus of kidney (principal); Z86.59 Personal history of other mental and behavioral disorders
CPT/HCPCS: 36415; 80053; 85025; 81001; 81025; 87086; 74176; 99284; 96374; 96375; 96361; J2405; J1885

== ENCOUNTER 2024-03-24 16:04 | Emergency (ER) | payer OTHER ==
[2024-03-24 16:10] VITALS: TEMP 98.5
--- NOTE | 2024-03-24 18:06 | XR ---
EXAMINATION TYPE: XR ankle complete LT DATE OF EXAM: 03/24/2024 COMPARISON: None HISTORY: Twisting injury ankle pain TECHNIQUE: 3 view left ankle FINDINGS: Ankle mortise is intact. Soft tissues are normal. No acute fracture or dislocation evident. Follow up exams can be performed 7 days from acute trauma for continued pain. IMPRESSION: 1. No acute osseous abnormality left ankle [facility] Gary, Workstation: [facility], 03/24/2024 6:04 PM
--- NOTE | 2024-03-24 18:34 | ED ---
General Adult HPI - General Chief complaint: Extremity Injury, Lower Stated complaint: pain in left ankle Time Seen by Provider: 03/24/24 16:14 Source: patient, RN notes reviewed Mode of arrival: wheelchair Limitations: no limitations - History of Present Illness Initial comments: 28 year old female presents to the emergency department for evaluation of left ankle injury that occurred this afternoon. Patient states that she was walking in her yard when she tripped in a hole and twisting her ankle. She reports that since then she has not been able to bear weight. Denies any other injury. Denies numbness, tingling. - Related Data Home Medications Medication Instructions Recorded Confirmed No Known Home Medications 01/03/23 01/03/23 Allergies Allergy/AdvReac Type Severity Reaction Status Date / Time No Known Allergies Allergy Verified 03/24/24 16:09 Review of Systems ROS Statement: Those systems with pertinent positive or pertinent negative responses have been documented in the HPI. ROS Other: All systems not noted in ROS Statement are negative. Past Medical History Past Medical History: No Reported History Additional Past Medical History / Comment(s): migraines History of Any Multi-Drug Resistant Organisms: None Reported Past Surgical History: Section Additional Past Surgical History / Comment(s): 2012, 2019 Past Psychological History: ADD/ADHD, Bipolar, Depression Smoking Status: Never smoker Past Alcohol Use History: None Reported Past Drug Use History: None Reported - Past Family History Mother Family Medical History: Hypertension General Exam Limitations: no limitations General appearance: alert, in no apparent distress Course Vital Signs 03/24/24 03/24/24 16:06 19:04 Temperature 98.5 F Pulse Rate 84 73 Respiratory 16 18 Rate Blood Pressure 127/78 100/72 O2 Sat by Pulse 100 96 Oximetry Medical Decision Making - Medical Decision Making Was pt. sent in by a medical professional or institution (, PA, HEART NURSE, urgent care, hospital, or custodial...) When possible be specific @ -No Did you speak to anyone other than the patient for history (EMS, parent, family, police, friend...)? What history was obtained from this source @ -No Did you review nursing and triage notes (agree or disagree)? Why? @ -I reviewed and agree with nursing and triage notes Were old charts reviewed (outside hosp., previous admission, EMS record, old EKG, old radiological studies, urgent care reports/EKG's, custodial records)? Report findings @ -No old charts were reviewed Differential Diagnosis (chest pain, altered mental status, abdominal pain women, abdominal pain men, vaginal bleeding, weakness, fever, dyspnea, syncope, headache, dizziness, GI bleed, back pain, seizure, CVA, palpatations, mental health, musculoskeletal)? @ -Differential Musculoskeletal Muscular strain, contusion, ligament sprain, fracture, arthritis, septic arthritis, bursitis, cellulitis, muscle spasm, nerve compression, DVT, arterial occlusion, herpes zoster, electrolyte abnormality, tumor.... This is not meant to be in all inclusive list EKG interpreted by me (3pts min.). @ -None X-rays interpreted by me (1pt min.). @ -X-ray of the left ankle shows no acute fracture, soft tissue swelling present CT interpreted by me (1pt min.). @ -None done U/S interpreted by me (1pt. min.). @ -None done What testing was considered but not performed or refused? (CT, X-rays, U/S, labs)? Why? @ -None What meds were considered but not given or refused? Why? @ -None Did you discuss the management of the patient with other professionals (professionals i.e. , PA, HEART NURSE, lab, RT, psych nurse, social work administrator, cylinder press feeder, teacher, disbursing officer, briefcase sewer)? Give summary @ -No Was smoking cessation discussed for >3mins.? @ -No Was critical care preformed (if so, how long)? @ -No Were there social determinants of health that impacted care today? How? (Homelessness, low income, unemployed, alcoholism, drug addiction, transportation, low edu. Level, literacy, decrease access to med. care, [facility], rehab)? @ -No Was there de-escalation of care discussed even if they declined (Discuss DNR or withdrawal of care, Hospice)? DNR status @ -No What co-morbidities impacted this encounter? (DM, HTN, Smoking, COPD, CAD, Cancer, CVA, ARF, Chemo, Hep., AIDS, mental health diagnosis, sleep apnea, morbid obesity)? @ -None Was patient admitted / discharged? Hospital course, mention meds given and route, prescriptions, significant lab abnormalities, going to OR and other pertinent info. @ -Discharge. Patient presented to the emergency department for evaluation of left ankle injury from twisting. Patient unable to bear weight. X-ray obtained revealing no acute fracture or dislocation. Patient was placed in Aircast. Provided crutches. Advised to follow-up with primary care provider. She is understanding agreeable plan. Patient stable at time of discharge. Case discussed with Dr. Santana Undiagnosed new problem with uncertain prognosis? @ -No Drug Therapy requiring intensive monitoring for toxicity (Heparin, Nitro, Insulin, Cardizem)? @ -No Were any procedures done? @ -No Diagnosis/symptom? @ -Left ankle sprain Acute, or Chronic, or Acute on Chronic? @ -Acute Uncomplicated (without systemic symptoms) or Complicated (systemic symptoms)? @ -Uncomplicated Side effects of treatment? @ -No Exacerbation, Progression, or Severe Exacerbation? @ -No Poses a threat to life or bodily function? How? (Chest pain, [place], [place], pneumonia, PE, COPD, DKA, ARF, appy, cholecystitis, CVA, Diverticulitis, Homicidal, Suicidal, threat to staff... and all critical care pts) @ -No Disposition Clinical Impression: Ankle sprain Disposition: HOME SELF-CARE Condition: Stable Instructions (If sedation given, give patient instructions): Ankle Sprain (ED) Additional Instructions: Please follow up with your primary care provider. Return to the emergency department for new or worsening symptoms. Is patient prescribed a controlled substance at d/c from ED?: No Referrals: None,Stated [Primary Care Provider] - 1-2 days Sadia Berry DO [Doctor of Osteopathic Medicine] -
[2024-03-24] MEDS: ACET/COD 300 MG/30 MG STARTER PACK 6 TAB BTL PO STA (18:51)
[2024-03-24 19:07] VITALS: BP 100/72; PULSE 73; RESP 18
== END 2024-03-24 19:05 | disposition home or self-care (01) ==
LOC: EC 16:04
DX: S93.402A Sprain of unspecified ligament of left ankle, initial encounter (principal); X50.1XXA Overexertion from prolonged static or awkward postures, initial encounter; Y93.01 Activity, walking, marching and hiking
CPT/HCPCS: 99283